=== PATIENT | female | born 1950 | race Caucasian/White ===

== ENCOUNTER 2017-11-17 18:15 | Inpatient (IN) | payer MEDICARE ==
[2017-11-17] VITALS (8 sets, daily range): BP systolic 99–129; BP diastolic 60–75; PULSE 55–142; RESP 18–21; TEMP 96.5–96.9; O2SAT 92–98
[~2017-11-17] VITALS: Ht 170.2 cm; Wt 63.9 kg
[2017-11-17] MEDS ORDERED: HYDR-3801 PO (18:50)
[2017-11-17] MEDS ORDERED: METO25TA3 PO (18:50)
[2017-11-17 19:22] LABS: AUTOMATED NEUTROPHIL # 10.9 TH/MM3 (1.8-7.7); BASOPHIL % 0.1 % (0.0-2.0); EOSINOPHIL % 0.1 % (0.0-4.0); HEMATOCRIT 34.2 % (35.0-46.0); HEMOGLOBIN 11.3 GM/DL (11.6-15.3); LYMPH % 8.2 % (9.0-44.0); LYMPHOCYTE # 1.1 TH/MM3 (1.0-4.8); MEAN CELL VOLUME 101.7 FL (80.0-100.0); MEAN CORPUSCULAR HEMOGLOBIN 33.7 PG (27.0-34.0); MEAN CORPUSCULAR HGB CONC 33.2 % (32.0-36.0); MONO % 13.3 % (0.0-8.0); MONOCYTE # 1.9 TH/MM3 (0-0.9); NEUT % 78.3 % (16.0-70.0); PLATELET COUNT 176 TH/MM3 (150-450); RED BLOOD COUNT 3.36 MIL/MM3 (4.00-5.30); RED CELL DISTRIBUTION WIDTH 13.1 % (11.6-17.2); WHITE BLOOD COUNT 13.9 TH/MM3 (4.0-11.0)
--- NOTE | 2017-11-17 19:24 | PD ---
HPI Chief Complaint: Fall Time Seen by Provider: 18:50 Travel History International Travel<30 days: No Contact w/Intl Traveler<30days: No Traveled to known affect area: No History of Present Illness HPI 87-year-old female history of hypertension, coronary artery disease, presents here with right hip pain after mechanical fall in the kitchen. Patient states she got dizzy when she was in the kitchen and dropped a container of lemonade. She reports when she went to go pick it up she slipped on the floor and fell landing on her right hip. Patient reports striking her head on the floor as well. She denies any loss of consciousness. She states she was unable to stand up. She reports pain in the right hip and posterior buttock area. The patient reports she is not currently taking any blood thinners. When paramedics arrived, they state her blood pressure was in the 80 systolic. They gave her a fluid bolus which increased into the low 100 systolic. PFSH Past Medical History Cardiovascular Problems: Yes ([place] 12/05) High Cholesterol: Yes Hypertension: Yes Immunizations Current: Yes (SHINGLES) Myocardial Infarction: Yes Influenza Vaccination: Yes ?: Not Menopausal: Yes Past Surgical History Abdominal Surgery: Yes (FIBROID TUMOR REMOVED 2011) Tonsillectomy: Yes Social History Alcohol Use: Yes (OCC) Tobacco Use: No Substance Use: No Allergies-Medications (Allergen,Severity, Reaction): Coded Allergies: No Known Allergies (Unverified , 11/17/17) Reported Meds & Prescriptions Reported Meds & Active Scripts Active Reported Hydralazine (Hydralazine HCl) 100 Mg Tab 100 Mg PO TID Take with meals Metoprolol Tartrate 25 Mg Tab 25 Mg PO TID Review of Systems Except as stated in HPI: all other systems reviewed are Neg General / Constitutional: No: Fever, Chills Eyes: No: Diploplia HENT: Positive: Headaches (right posterior head), Other (dry mucous membranes.) , No: Neck Pain Cardiovascular: No: Chest Pain or Discomfort, Palpitations, Tachycardia Respiratory: No: Cough, Shortness of Breath Gastrointestinal: No: Nausea, Vomiting, Abdominal Pain Genitourinary: No: Dysuria, Incontinence Musculoskeletal: Positive: Weakness (prior to falling.), Pain (right hip) Neurologic: Positive: Weakness, Headache (right side where she struck the floor.), No: Change in Mentation, Incontinence, Sensory Disturbance Physical Exam Narrative GENERAL: Pale weak appearing female in no acute rest her distress. SKIN: Focused skin assessment warm/dry. HEAD: Atraumatic. Normocephalic. Objective discomfort to the right lateral posterior occipital area. No bruising or hematoma appreciated. EYES: No scleral icterus. No injection or drainage. ENT: No nasal bleeding or discharge. Mucous membranes dry. NECK: Trachea midline. Supple. CARDIOVASCULAR: Regular rate and rhythm. No murmur appreciated. RESPIRATORY: No accessory muscle use. Clear to auscultation. Breath sounds equal bilaterally. GASTROINTESTINAL: Abdomen soft, non-tender, nondistended. MUSCULOSKELETAL: Patient reports pain to the right hip. He does appear to be shortened and externally rotated. She does have palpable pulses to dorsalis pedis. NEUROLOGICAL: Awake and alert. No obvious cranial nerve deficits. Motor grossly within normal limits. Normal speech. PSYCHIATRIC: Appropriate mood and affect; insight and judgment normal. Data Data Last Documented VS Vital Signs Date Time Temp Pulse Resp B/P (MAP) Pulse Ox O2 Delivery O2 Flow Rate FiO2 11/17/17 19:10 98 Room Air 11/17/17 18:29 96.5 55 21 129/75 (93) Orders Orders Hip, Uni(Ap&Lat) W Ap Pelvis (11/17/17 18:50) Electrocardiogram (11/17/17 18:50) Complete Blood Count With Diff (11/17/17 18:50) Comprehensive Metabolic Panel (11/17/17 18:50) Prothrombin Time / Inr (Pt) (11/17/17 18:50) Act Partial Throm Time (Ptt) (11/17/17 18:50) Chest, Single Ap (11/17/17 18:50) Iv Access Insert/Monitor (11/17/17 18:50) Ecg Monitoring (11/17/17 18:50) Oximetry (11/17/17 18:50) Type And Screen (11/17/17 18:50) MDM Medical Decision Making Medical Screen Exam Complete: Yes Emergency Medical Condition: Yes Differential Diagnosis Right hip fracture versus contusion versus intracranial injury versus dehydration versus metabolic derangement Narrative Course 67-year-old female presents today with right hip pain after mechanical fall in her kitchen. Patient also had a reported hypotensive episode when paramedics arrived. They gave her a fluid bolus. The patient has shortening and external rotation of her right hip. She'll be signed out to Dr. Joey Jacobo, physician replacing me at change of shift. Disposition will be per Dr. Jacobo. I anticipate she will have a hip fracture will need admission. Diagnosis Primary Impression: Right hip pain Additional Impressions: mechanical fall. hypotensive episode Satya Cerda MD Nov 17, 2017 19:24
[2017-11-17 19:35] LABS: PROTHROMBIN TIME - PATIENT 10.3 SEC (9.8-11.6)
[2017-11-17 19:43] LABS: ALBUMIN 2.9 GM/DL (3.4-5.0); AST (GOT) 21 U/L (15-37); BICARBONATE 16.8 MEQ/L (21.0-32.0); BLOOD UREA NITROGEN 37 MG/DL (7-18); CALCIUM 8.1 MG/DL (8.5-10.1); CHLORIDE 104 MEQ/L (98-107); GLOMERULAR FILTRATION RATE 22 ML/MIN (>89); GLUCOSE,RANDOM 108 MG/DL (74-106); SODIUM (NA) 135 MEQ/L (136-145)
[2017-11-17 19:44] LABS: ALT (GPT) 25 U/L (10-53)
[2017-11-17] MEDS ORDERED: ONDANSETRON HCL 4 MG/2 ML VIAL IV PUSH ONE (19:45)
[2017-11-17] MEDS ORDERED: MORPHINE SULFATE 2 MG/ML INJ IV PUSH ONE (19:45)
[2017-11-17] MEDS ORDERED: SODIUM CHLOR 0.9% 1000 ML INJ 1,000 ML IV SCH (19:45)
[2017-11-17 19:46] LABS: ALKALINE PHOSPHATASE 95 U/L (45-117); TOTAL BILIRUBIN ADULT 0.2 MG/DL (0.2-1.0); TOTAL PROTEIN 6.3 GM/DL (6.4-8.2)
--- NOTE | 2017-11-17 19:47 | PD ---
Physical Exam Narrative Patient was seen by ED physician and signed out to me. Patient fell this afternoon. Patient has not in eating or drinking much all day today. Patient initially was hypotensive. Patient was given IV fluid with resulting in good blood pressure now. History hypertension and hyperlipidemia. Patient quit smoking recently. Patient take aspirin 81 mg daily however not today. Data Data Last Documented VS Vital Signs Date Time Temp Pulse Resp B/P (MAP) Pulse Ox O2 Delivery O2 Flow Rate FiO2 11/17/17 19:10 98 Room Air 11/17/17 18:29 96.5 55 21 129/75 (93) Orders Orders Hip, Uni(Ap&Lat) W Ap Pelvis (11/17/17 18:50) Electrocardiogram (11/17/17 18:50) Complete Blood Count With Diff (11/17/17 18:50) Comprehensive Metabolic Panel (11/17/17 18:50) Prothrombin Time / Inr (Pt) (11/17/17 18:50) Act Partial Throm Time (Ptt) (11/17/17 18:50) Chest, Single Ap (11/17/17 18:50) Iv Access Insert/Monitor (11/17/17 18:50) Ecg Monitoring (11/17/17 18:50) Oximetry (11/17/17 18:50) Type And Screen (11/17/17 18:50) Sodium Chlor 0.9% 1000 Ml Inj (Ns 1000 M (11/17/17 19:45) Morphine Inj (Morphine Inj) (11/17/17 19:45) Ondansetron Inj (Zofran Inj) (11/17/17 19:45) Labs Laboratory Tests Test 11/17/17 19:08 White Blood Count 13.9 TH/MM3 Red Blood Count 3.36 MIL/MM3 Hemoglobin 11.3 GM/DL Hematocrit 34.2 % Mean Corpuscular Volume 101.7 FL Mean Corpuscular Hemoglobin 33.7 PG Mean Corpuscular Hemoglobin Concent 33.2 % Red Cell Distribution Width 13.1 % Platelet Count 176 TH/MM3 Mean Platelet Volume 9.0 FL Neutrophils (%) (Auto) 78.3 % Lymphocytes (%) (Auto) 8.2 % Monocytes (%) (Auto) 13.3 % Eosinophils (%) (Auto) 0.1 % Basophils (%) (Auto) 0.1 % Neutrophils # (Auto) 10.9 TH/MM3 Lymphocytes # (Auto) 1.1 TH/MM3 Monocytes # (Auto) 1.9 TH/MM3 Eosinophils # (Auto) 0.0 TH/MM3 Basophils # (Auto) 0.0 TH/MM3 CBC Comment DIFF FINAL Differential Comment Prothrombin Time 10.3 SEC Prothromb Time International Ratio 1.0 RATIO Activated Partial Thromboplast Time 27.8 SEC MDM Supervised Visit with REYNALDO: No Narrative Course Patient with fracture right femur, intertrochanteric. Normal saline solution 1 25 cc an hour. Morphine 2 mg IV. Zofran 4 mg IV. Diagnosis Primary Impression: Right hip pain Additional Impressions: hypotensive episode mechanical fall. Fracture of right femur Qualified Codes: S72.141A - Displaced intertrochanteric fracture of right femur, initial encounter for closed fracture Admitting Information Admitting Physician Requests: Admit Joey Jacobo MD Nov 17, 2017 19:47
--- NOTE | 2017-11-17 19:53 | RADRPT ---
EXAM DATE/TIME: 11/17/2017 19:15 [facility] COMPARISON: No previous studies available for comparison. INDICATIONS : Fall today. Shortness of breath. MEDICAL HISTORY : None. SURGICAL HISTORY : None. ENCOUNTER: Initial ACUITY: 1 day PAIN SCORE: 0/10 LOCATION: Bilateral chest FINDINGS: The lungs are clear without infiltrate, nodule, or mass. There is no appreciable pleural effusion fo r technique. Heart and mediastinum are unremarkable. There are atherosclerotic calcifications of the aorta due to chronic atherosclerotic disease. No definite pneumothorax is seen for technique. CONCLUSION: No acute cardiopulmonary disease. Linden Araujo MD on November 17, 2017 at 19:50 Board Certified Radiologist. This report was verified electronically.
--- NOTE | 2017-11-17 19:54 | RADRPT ---
EXAM DATE/TIME: 11/17/2017 19:12 [facility] COMPARISON: No previous studies available for comparison. INDICATIONS : Fall today. MEDICAL HISTORY : None. SURGICAL HISTORY : None. ENCOUNTER: Initial ACUITY: 1 day PAIN SCORE: 10/10 LOCATION: Right hip. FINDINGS: Intertrochanter fracture is present within both lesser trochanter and the fracture extends down the s haft of the proximal femur into the proximal diaphysis and there is varus angulation. CONCLUSION: Intertrochanteric fracture. Linden Araujo MD on November 17, 2017 at 19:51 Board Certified Radiologist. This report was verified electronically.
--- NOTE | 2017-11-17 19:59 | HHI.HP ---
HPI Service [facility] Primary Care Physician Unknown Admission Diagnosis fracture right femur Diagnoses: (1) Fall Diagnosis: Principal (2) Fracture of right femur Diagnosis: Principal (3) Hypotension Diagnosis: Principal (4) Leukocytosis Diagnosis: Principal (5) Renal insufficiency Diagnosis: Principal (6) Bradycardia Diagnosis: Principal Travel History International Travel<30 Days: No Contact w/Intl Traveler <30 Da: No Traveled to Known Affected Are: No History of Present Illness This is a 67-year-old female w/ a PMH of HTN, Hyperlipidemia and CAD who was brought to the ER for right hip pain following a fall. Pt states she was in the kitchen and had acute onset of dizziness, dropped a container on the floor and when she went to pick it up had slip and fall onto right hip. Pain is sharp , constant, severe 10/10. Worse w/ movement. No LOC or head trauma reported. Upon EMS arrival, pt noted to have BP 80's systolic, s/p IVF w/ improvement. On arrival to ER, BP 129/75, HR 55, O2 sat 96% on RA, Afebrile. WBC 13.9. Creatinine 2.20, no previous labs for comparison. CXR with no acute findings. Hip X-ray with intertrochanteric hip fracture. Dr. Dale consulted by ER physician, plan is for surgical intervention. Review of Systems Except as stated in HPI: all other systems reviewed are Neg ROS: 14 point review of systems otherwise negative. Past Family Social History Past Medical History PMH: HTN, Hyperlipidemia and CAD Past Surgical History PAST SURGICAL HISTORY: Fibroid Tumor Removal, Tonsillectomy Allergies: Coded Allergies: No Known Allergies (Unverified , 11/17/17) Family History PAST FAMILY HISTORY: Reviewed. No h/o DM or CAD Social History PAST SOCIAL HISTORY: Occasional alcohol. History of tobacco, quit. Negative for drugs. Physical Exam Vital Signs Vital Signs Date Time Temp Pulse Resp B/P (MAP) Pulse Ox O2 Delivery O2 Flow Rate FiO2 11/17/17 19:10 98 Room Air 11/17/17 18:29 96.5 55 21 129/75 (93) 96 Physical Exam PE: GENERAL: Middle-aged female in no acute distress. HEENT: PERRLA, EOMI. No scleral icterus or conjunctival pallor. No lid lag or facial droop. CARDIOVASCULAR: Regular rate and rhythm. No obvious murmurs to auscultation. No chest tenderness to palpation. RESPIRATORY: No obvious rhonchi or wheezing. Clear to auscultation. Breath sounds equal bilaterally. GASTROINTESTINAL: Abdomen soft, non-tender, nondistended. BS normal. MUSCULOSKELETAL: Extremities without clubbing, cyanosis, or edema. No obvious deformities. Decreased ROM of RLE due to injury. Pulses intact. NEUROLOGICAL: Awake, alert and oriented x4. No focal neurologic deficits. Moving both upper and lower extremities spontaneously. Laboratory Laboratory Tests Test 11/17/17 19:08 White Blood Count 13.9 Red Blood Count 3.36 Hemoglobin 11.3 Hematocrit 34.2 Mean Corpuscular Volume 101.7 Mean Corpuscular Hemoglobin 33.7 Mean Corpuscular Hemoglobin Concent 33.2 Red Cell Distribution Width 13.1 Platelet Count 176 Mean Platelet Volume 9.0 Neutrophils (%) (Auto) 78.3 Lymphocytes (%) (Auto) 8.2 Monocytes (%) (Auto) 13.3 Eosinophils (%) (Auto) 0.1 Basophils (%) (Auto) 0.1 Neutrophils # (Auto) 10.9 Lymphocytes # (Auto) 1.1 Monocytes # (Auto) 1.9 Eosinophils # (Auto) 0.0 Basophils # (Auto) 0.0 CBC Comment DIFF FINAL Differential Comment Prothrombin Time 10.3 Prothromb Time International Ratio 1.0 Activated Partial Thromboplast Time 27.8 Blood Urea Nitrogen 37 Creatinine 2.20 Random Glucose 108 Total Protein 6.3 Albumin 2.9 Calcium Level 8.1 Alkaline Phosphatase 95 Aspartate Amino Transf (AST/SGOT) 21 Alanine Aminotransferase (ALT/SGPT) 25 Total Bilirubin 0.2 Sodium Level 135 Potassium Level 4.1 Chloride Level 104 Carbon Dioxide Level 16.8 Anion Gap 14 Estimat Glomerular Filtration Rate 22 Result Diagram: 11/17/17190711/17/171907 Caprini VTE Risk Assessment Caprini VTE Risk Assessment: Mod/High Risk (score >= 2) Caprini Risk Assessment Model Point Value = 1 Point Value = 2 Point Value = 3 Point Value = 5 Age 41-60 Minor surgery BMI > 25 kg/m2 Swollen legs Varicose veins or History of unexplained or recurrent spontaneous Oral contraceptives or hormone replacement Sepsis (< 1 month) Serious lung disease, including pneumonia (< 1 month) Abnormal pulmonary function Acute myocardial infarction Congestive heart failure (< 1 month) History of inflammatory bowel disease Medical patient at bed rest Age 61-74 Arthroscopic surgery Major open surgery (> 45 min) Laparoscopic surgery (> 45 min) Malignancy Confined to bed (> 72 hours) Immobilizing plaster cast Central venous access Age >= 75 History of VTE Family history of VTE Factor V Leiden Prothrombin [id number] Lupus anticoagulant Anticardiolipin antibodies Elevated serum homocysteine Heparin-induced thrombocytopenia Other congenital or acquired thrombophilia Stroke (< 1 month) Elective arthroplasty Hip, pelvis, or leg fracture Acute spinal cord injury (< 1 month) Prophylaxis Regimen Total Risk Factor Score Risk Level Prophylaxis Regimen 0-1 Low Early ambulation 2 Moderate Order ONE of the following: *Sequential Compression Device (SCD) *Heparin 5000 units SQ BID 3-4 Higher Order ONE of the following medications: *Heparin 5000 units SQ TID *Enoxaparin/Lovenox 40 mg SQ daily (WT < 150 kg, CrCl > 30 mL/min) *Enoxaparin/Lovenox 30 mg SQ daily (WT < 150 kg, CrCl > 10-29 mL/min) *Enoxaparin/Lovenox 30 mg SQ BID (WT < 150 kg, CrCl > 30 mL/min) AND/OR *Sequential Compression Device (SCD) 5 or more Highest Order ONE of the following medications: *Heparin 5000 units SQ TID (Preferred with Epidurals) *Enoxaparin/Lovenox 40 mg SQ daily (WT < 150 kg, CrCl > 30 mL/min) *Enoxaparin/Lovenox 30 mg SQ daily (WT < 150 kg, CrCl > 10-29 mL/min) *Enoxaparin/Lovenox 30 mg SQ BID (WT < 150 kg, CrCl > 30 mL/min) AND *Sequential Compression Device (SCD) Assessment and Plan Problem List: (1) Fall ICD Code: W19.XXXA - Unspecified fall, initial encounter (2) Fracture of right femur ICD Code: S72.91XA - Unspecified fracture of right femur, initial encounter for closed fracture Status: Acute (3) Hypotension ICD Code: I95.9 - Hypotension, unspecified (4) Bradycardia ICD Code: R00.1 - Bradycardia, unspecified (5) Renal insufficiency ICD Code: N28.9 - Disorder of kidney and ureter, unspecified (6) Leukocytosis ICD Code: D72.829 - Elevated white blood cell count, unspecified Assessment and Plan A/P: 1. Fall: mechanical slip and fall in kitchen, denies LOC or head trauma, however +dizziness, likely secondary to hypotension. 2. Right Hip Fx: secondary to above, Hip X-ray w/ right intertrochanteric hip fracture, images reviewed by me. Dr. Dale consulted, plan is for surgical intervention in am. NPO, IVF, analgesic/antiemetics. 3. Hypotension: BP 80's systolic upon EMS arrival, s/p IVF w/ some improvement. Reports dizziness and decreased PO intake. Monitor BP closely, hold home Hydralazine and Metoprolol, resume once BP stable. 4. Bradycardia: HR 50's, baseline unknown, on Metoprolol. Bradycardia possibly contributing to dizziness/fall. Check Echo. Telemetry, monitor vitals. Cardiology Consult if needed for symptomatic bradycardia 5. Renal Insufficiency: Creatinine 2.20, no previous labs for comparison. IVF , check U/a to eval for possible UTI, repeat labs in am. Consult Nephro if no improvement for further recommendations. 6. DVT Prophylaxis: Anticoagulation post op 7. Social work for d/c planning as needed. 8. Records/labs/imaging reviewed by me, case discussed w/ ER physician at length. Physician Certification 2 Midnight Certification Type: Admission for Inpatient Services Order for Inpatient Services The services are ordered in accordance with Medicare regulations or non- Medicare payer requirements, as applicable. In the case of services not specified as inpatient-only, they are appropriately provided as inpatient services in accordance with the 2-midnight benchmark. Estimated LOS (days): 2 days is the estimated time the patient will need to remain in the hospital, assuming treatment plan goals are met and no additional complications. Post-Hospital Plan: Not yet determined Problem Qualifiers (1) Fracture of right femur: Qualified Codes: S72.141A - Displaced intertrochanteric fracture of right femur , initial encounter for closed fracture Sharon Leavitt MD Nov 17, 2017 19:59
[2017-11-17] MEDS ORDERED: SODIUM CHLORIDE 0.9% FLUSH 10 ML FLUSH IV FLUSH PRN (20:00)
[2017-11-17] MEDS ORDERED: SENNOSIDES 8.6 MG TAB PO PRN (20:00)
[2017-11-17] MEDS ORDERED: BISACODYL 10 MG SUPP RECTAL PRN (20:00)
[2017-11-17] MEDS ORDERED: ACETAMINOPHEN 325 MG TAB PO PRN (20:00)
[2017-11-17] MEDS ORDERED: ONDANSETRON HCL 4 MG/2 ML VIAL IVP PRN (20:00)
[2017-11-17] MEDS ORDERED: LACTULOSE SYRUP 20 GM/30 ML CUP PO PRN (20:00)
[2017-11-17] MEDS ORDERED: MAGNESIUM HYDROXIDE SUSP 30 ML CUP PO PRN (20:00)
[2017-11-17] MEDS: SODIUM CHLOR 0.9% 1000 ML INJ 1,000 ML IV SCH (20:18)
[2017-11-17] MEDS: SODIUM CHLORIDE 0.9% FLUSH 10 ML FLUSH IV FLUSH SCH (21:00)
[2017-11-17] MEDS: ACETAMINOPHEN/HYDROcodone 325 MG/5 MG TAB PO PRN (21:11)
[2017-11-17] MEDS: DOCUSATE SODIUM 50 MG/SENNA 8.6 MG TAB PO SCH (21:11)
[2017-11-17] MEDS ORDERED: SERO300T PO (21:24)
[2017-11-17] MEDS ORDERED: [UNRECOGNIZED DRUG - CODE] PO (21:24)
[2017-11-17] MEDS ORDERED: AMLO5TAB2 PO (21:28)
[2017-11-17] MEDS ORDERED: LORA0.5T PO (21:28)
[2017-11-17] MEDS ORDERED: ATOR20TA15 PO (21:28)
[2017-11-17] MEDS ORDERED: LISI-515 PO (21:31)
[2017-11-17] MEDS ORDERED: GUAI100S5 PO (21:34)
[2017-11-17] MEDS ORDERED: SUBO8MIS SL (21:36)
[2017-11-17] MEDS ORDERED: FOLI400T PO (21:36)
[2017-11-17] MEDS ORDERED: LACTATED RINGER'S 1000 ML IV PRN (22:30)
[2017-11-17] MEDS ORDERED: SODIUM CHLORID 0.9% 500 ML IV PRN (22:30)
[2017-11-17] MEDS ORDERED: CHLORHEXIDINE GLUCONATE 2 % 1 PACK (2 CLOTHS) TOPICAL PRN (22:30)
[2017-11-17] MEDS ORDERED: POVIDONE IODINE 5% (ANTISEPSIS KIT) 4 APPLICATIONS EACH NARE PRN (22:30)
[2017-11-17] MEDS: QUEtiapine FUMARATE 300 MG TAB PO SCH (22:33)
[2017-11-17] MEDS: ATORVASTATIN 20 MG TAB PO SCH (22:33)
--- NOTE | 2017-11-17 22:35 | EKG ---
Date Performed: 11/17/2017 Time Performed: 19:29:40 PTAGE: 67 years EKG: SINUS TACHYCARDIA MARKED LEFT AXIS DEVIATION POSSIBLE RIGHT VENTRICULAR CONDUCTION DELAY SE PTAL MYOCARDIAL INFARCTION ABNORMAL ECG NO PREVIOUS TRACING DOCTOR: Mark Becerra Interpretating Date/Time 11/17/2017 22:34:35
--- NOTE | 2017-11-17 22:44 | EKG ---
Date Performed: 11/17/2017 Time Performed: 22:28:00 PTAGE: 67 years EKG: SINUS TACHYCARDIA MARKED LEFT AXIS DEVIATION ST DEVIATION AND MODERATE T-WAVE ABNORMALITY, CONSIDER LATERAL ISCHEMIA ABNORMAL ECG PREVIOUS TRACING : 11/17/2017 19.29 Compared to prior tracing no significant change DOCTOR: Mark Becerra Interpretating Date/Time 11/17/2017 22:43:48
[2017-11-17] MEDS ORDERED: METOPROLOL TARTRATE 25 MG TAB PO ONE (22:45)
[2017-11-17] MEDS: MORPHINE SULFATE 2 MG/ML INJ IV PUSH PRN (23:11)
[2017-11-18] VITALS (13 sets, daily range): BP systolic 80–148; BP diastolic 51–92; PULSE 110–143; RESP 18; TEMP 96.6–99.8; O2SAT 90–95
[2017-11-18] MEDS: ACETAMINOPHEN/HYDROcodone 325 MG/5 MG TAB PO PRN ×2 (01:35→18:07)
[2017-11-18] MEDS ORDERED: SODIUM CHLOR 0.9% 1000 ML INJ 1,000 ML IV ONE (02:00)
[2017-11-18] MEDS: MORPHINE SULFATE 2 MG/ML INJ IV PUSH PRN ×4 (02:33→19:56)
[2017-11-18 03:18] LABS: BACTERIA, URINE MANY /hpf; BILIRUBIN, URINE NEG (NEG); BLOOD, URINE SMALL (NEG); GLUCOSE,URINE NEG (NEG); KETONE, URINE NEG (NEG); NITRITE,URINE NEG (NEG); PH, URINE 5.5 (5.0-8.5); URINE COLOR YELLOW (YELLW/STRAW); URINE LEUKOCYTE ESTERASE LARGE (NEG)
[2017-11-18] MEDS ORDERED: GENTAMICIN SULFATE 80 MG/2 ML VIAL ONE (07:13)
[2017-11-18] MEDS ORDERED: ACETAMINOPHEN 1000 MG/100 ML 100 ML IV ONE (07:18)
[2017-11-18] MEDS: SODIUM CHLORIDE 0.9% FLUSH 10 ML FLUSH IV FLUSH SCH ×2 (08:25→19:54)
[2017-11-18] MEDS: DOCUSATE SODIUM 50 MG/SENNA 8.6 MG TAB PO SCH ×2 (08:25→19:54)
[2017-11-18] MEDS ORDERED: cefTRIAXone 1,000 MG/NS 100 ML IV ONE ×2 (10:15)
[2017-11-18] MEDS ORDERED: LEVOFLOXACIN 500 MG PREMIX INJ 100 ML IV ONE (10:15)
[2017-11-18 10:23] LABS: HEMATOCRIT 28.9 % (35.0-46.0); HEMOGLOBIN 9.6 GM/DL (11.6-15.3); MEAN CELL VOLUME 100.6 FL (80.0-100.0); MEAN CORPUSCULAR HEMOGLOBIN 33.5 PG (27.0-34.0); MEAN CORPUSCULAR HGB CONC 33.3 % (32.0-36.0); MEAN PLATELET VOLUME 8.9 FL (7.0-11.0); PLATELET COUNT 151 TH/MM3 (150-450); RED BLOOD COUNT 2.88 MIL/MM3 (4.00-5.30); RED CELL DISTRIBUTION WIDTH 12.9 % (11.6-17.2); WHITE BLOOD COUNT 9.7 TH/MM3 (4.0-11.0)
[2017-11-18 10:33] LABS: ALKALINE PHOSPHATASE 81 U/L (45-117); TOTAL BILIRUBIN ADULT 0.2 MG/DL (0.2-1.0); TOTAL PROTEIN 5.5 GM/DL (6.4-8.2)
[2017-11-18 10:36] LABS: ALBUMIN 2.4 GM/DL (3.4-5.0); ALT (GPT) 23 U/L (10-53); AST (GOT) 23 U/L (15-37); BICARBONATE 20.9 MEQ/L (21.0-32.0); CALCIUM 7.6 MG/DL (8.5-10.1); CHLORIDE 106 MEQ/L (98-107); CREATININE 1.45 MG/DL (0.50-1.00); GLOMERULAR FILTRATION RATE 36 ML/MIN (>89); GLUCOSE,RANDOM 92 MG/DL (74-106); SODIUM (NA) 135 MEQ/L (136-145)
[2017-11-18 10:37] LABS: BLOOD UREA NITROGEN 31 MG/DL (7-18)
--- NOTE | 2017-11-18 11:43 | HHI.PR ---
Subjective Remarks Follow up fall, dizziness. Patient was scheduled for surgery this morning, but it is on hold for cardiology evaluation and echocardiogram. She denies chest pain, dyspnea. She does have nausea, but no vomiting. Objective Vitals Vital Signs Date Time Temp Pulse Resp B/P (MAP) Pulse Ox O2 Delivery O2 Flow Rate FiO2 11/18/17 08:00 96.6 113 18 112/67 (82) 90 11/18/17 05:30 80/51 (61) 11/18/17 05:19 110 11/18/17 04:30 96.7 113 18 92/53 (66) 95 11/18/17 02:51 124 11/18/17 02:38 18 11/18/17 02:28 18 11/18/17 02:08 130 104/64 (77) 11/18/17 01:32 131 102/64 (77) 11/17/17 23:47 137 11/17/17 23:12 96.9 136 18 99/69 (79) 93 11/17/17 22:45 136 11/17/17 22:37 18 11/17/17 22:31 135 11/17/17 22:00 140 11/17/17 21:10 96.7 142 19 112/60 (77) 92 11/17/17 19:10 98 Room Air 11/17/17 18:29 96.5 55 21 129/75 (93) 96 I/O 11/17/17 11/17/17 11/17/17 11/18/17 11/18/17 11/18/17 07:00 15:00 23:00 07:00 15:00 23:00 Intake Total 480 ml 1500 ml Output Total 650 ml Balance 480 ml 850 ml Intake Oral 480 ml 0 ml IV Total 1500 ml Output Urine Total 650 ml Bladder Scan Volume Amount 725 ml # Voids 0 # Bowel Movements 0 0 Result Diagram: 11/18/1794811/18/17948 Imaging Last Impressions Hip and Pelvis X-Ray 11/17/171849 Signed Impressions: Service Date/Time: Friday, November 17, 2017 19:12 - CONCLUSION: Intertrochanteric fracture. Linden Araujo MD Chest X-Ray 11/17/171849 Signed Impressions: Service Date/Time: Saturday, November 17, 2017 19:15 - CONCLUSION: No acute cardiopulmonary disease. Linden Araujo MD Objective Remarks General: No acute distress. Heart: Regular rate and rhythm. No murmur. Lungs: Clear to auscultation bilaterally. No wheezes, rales, or rhonchi. Breathing is nonlabored. Abdomen: Soft, nontender, nondistended. Extremities: No lower extremity edema. Psych: Alert and oriented. Procedures None Urinary Catheter: Yes Assessment to: Continue Aguilar insert reason: Surgical/Invasive Proced Vascular Central Line Catheter: No A/P Problem List: (1) Fall ICD Code: W19.XXXA - Unspecified fall, initial encounter (2) Fracture of right femur ICD Code: S72.91XA - Unspecified fracture of right femur, initial encounter for closed fracture Status: Acute (3) Hypotension ICD Code: I95.9 - Hypotension, unspecified (4) Bradycardia ICD Code: R00.1 - Bradycardia, unspecified (5) Renal insufficiency ICD Code: N28.9 - Disorder of kidney and ureter, unspecified (6) Leukocytosis ICD Code: D72.829 - Elevated white blood cell count, unspecified Assessment and Plan 1. Status post mechanical fall at home: Patient had dizziness preceding the event, likely secondary to hypotension. 2. Right hip fracture: Appreciate orthopedic surgery recommendations. Patient will need surgical repair. Surgery is on hold pending cardiology evaluation and echocardiogram. 3. Hypotension: Blood pressure is improving. Continue IV fluids. Patient has had decreased oral intake also reported dizziness prior to her fall. Blood pressure medications on hold. 4. Bradycardia: Patient is chronically on beta rowena. This possibly contributed to her dizziness and fall. Echocardiogram pending. Monitor on telemetry. Cardiology consultation is pending. 5. Renal insufficiency: Creatinine 2.2 upon arrival, improved to 1.45 today. Continue IV fluids. Monitor labs. 6. Coronary artery disease: Currently asymptomatic. Continue statin. Beta rowena on hold. 7. UTI: Urine culture is pending. Continue antibiotics. 8. DVT prophylaxis: SCDs. Anticoagulation postoperatively. Problem Qualifiers (1) Fracture of right femur: Qualified Codes: S72.141A - Displaced intertrochanteric fracture of right femur , initial encounter for closed fracture Alejandro Hernandez MD Nov 18, 2017 11:42
[2017-11-18 12:04] LABS: BANDS 30 % (0-6); BASOPHILS 1 % (0-2); LYMPHOCYTES 12 % (9-44); MONOCYTES 12 % (0-8); NEUTROPHIL # MANUAL DIFF 7.1 TH/MM3 (1.8-7.7); POLYS (SEG NEUTROPHILS) 43 % (16-70)
[2017-11-18] MEDS ORDERED: PILL SPLITTER OTHER PRN (15:30)
[2017-11-18] MEDS: SODIUM CHLOR 0.9% 1000 ML INJ 1,000 ML IV SCH ×2 (16:00→20:02)
--- NOTE | 2017-11-18 16:08 | MB ---
cc: CARLIN MOSS DO DATE OF CONSULTATION: 11/18/2017. REASON FOR CONSULTATION: Preoperative risk assessment. HISTORY OF PRESENT ILLNESS: Roberta Stevens is a pleasant 67-year-old female who presented to the [facility] Emergency Room on November 17, 2017 for right hip pain after a fall. She states that she had noticed she had a fever of 103 and took some aspirin and this took it down and she was sleeping. She had not eaten or drunk anything over the past 24 hours. She went down to the kitchen and grabbed some lemonade and it dropped to the floor and the container was leaking out everywhere. She states that she was dizzy at the time (has a history of vertigo) but she was worried that the container continued to leak and so she grabbed onto the fridge and started leaning over trying to pick it up and at that time lost her warehouse material handler on the fridge and fell landing on her right hip. On seeing her, she is currently tachycardic but otherwise hemodynamically stable. She denies chest pain or shortness of breath. She is in significant sharp pain in her right hip. The patient previously had a stent placed between four and six years ago. She followed with a sheet heater helper in [place] until moving down here within the past few weeks. She states that she had regular cardiovascular checkups and had a pharmacologic nuclear stress test around four months ago which she was told was normal. PAST MEDICAL HISTORY: 1. Hypertension. 2. Hyperlipidemia. 3. Coronary artery disease. PAST SURGICAL HISTORY: 1. Previous stent to an unknown vessel around four to six years ago. 2. Fibroid tumor removal. 3. Tonsillectomy. ALLERGIES: No known drug allergies. MEDICATIONS: 1. Lipitor 20 milligrams every night. 2. Hydralazine 25 milligrams three times a day. 3. Metoprolol tartrate 100 milligrams twice a day. 4. Norvasc 5 milligrams daily. 5. Lisinopril 20 milligrams twice a day. 6. Seroquel 600 milligrams every night. 7. Ativan 0.25 milligrams daily as needed for anxiety. FAMILY HISTORY: Denies premature coronary artery disease or sudden cardiac within the family. SOCIAL HISTORY: The patient occasionally uses alcohol. Previously smoked but quit a number years ago. Denies drugs. REVIEW OF SYSTEMS Fourteen systems were reviewed including osteopathic with pertinent positives and negatives as above; otherwise negative. PHYSICAL EXAMINATION: VITAL SIGNS: Temperature 96.6, heart rate 124, blood pressure 108/73, respirations 18, pulse ox 93% on room air. GENERAL: In general the patient appears well in mild distress due to right hip pain. HEAD, EYES, EARS, NOSE, THROAT: Extraocular muscles intact. Mucous membranes moist. NECK: The neck is supple. No JVD at 45 degrees. No carotid bruits heard bilaterally. Carotid upstroke is brisk in nature. HEART: Heart is tachycardiac. Positive first and second heart sounds with no murmurs, gallops or rubs. LUNGS: Lungs are clear to auscultation bilaterally. No wheezes, rales or rhonchi. ABDOMEN: The abdomen is soft, nontender and nondistended. No organomegaly noted. EXTREMITIES: No cyanosis, clubbing or edema. Right hip noted to have pain with palpation and decreased range of motion. NEUROLOGIC: No focal deficits. SKIN: Warm, dry and intact. OSTEOPATHIC: Osteopathically, no kyphoscoliosis, lordosis or paraspinal tender points. LABORATORY FINDINGS: Hemoglobin 9.6, hematocrit 28.9, platelets 151,000. Potassium 4.0, BUN 31, creatinine 1.45. EKGS: Electrocardiogram (November 17, 2017 at 1929): Sinus tachycardia, possible right ventricular conduction delay, baseline artifact. IMPRESSION: 1. Mechanical fall with the right hip fracture 2. History of vertigo. 3. Poor oral intake over the past 24 hours. 4. Dehydration. 5. Episode of hypotension on arrival to the emergency room with some improvement with fluids. 6. Tachycardia. 7. Acute kidney injury. 8. Preoperative cardiac evaluation. RECOMMENDATIONS: 1. Ms. Stevens appears to have had a mechanical fall due to her vertigo and also most likely due to her poor oral intake over the past 24 hours. She appears to be dehydrated and should continue on IV fluids. 2. She currently denies any chest pain or shortness of breath and blood pressure has responded to IV fluids. 3. She is overall tachycardic, which may be due to pain, dehydration and stopping her beta-rowena. We will place her back on metoprolol tartrate but at a lower dose to not bottom out of pressure. 4. As far as surgery goes, at this time she would be high risk being so tachycardiac, and I would try to resuscitate her with fluids and get her back on a beta-rowena before taking her. 5. We will check a 2-D echo to look at her overall left ventricular function, cardiac structure and possible bowel velocities. 6. She recently had a pharmacologic nuclear stress test around four months ago by her sheet heater helper in [place], which the patient states was negative. 7. If surgery is emergent, then she may proceed but otherwise would attempt to resuscitate her and possibly take her in the next 24 hours. Thank you for allowing me to see Roberta Stevens. If there are any questions, please do not hesitate to call. Carlin Moss DO VGP/JCC /3:04 PM /3:40 PM
[2017-11-18] MEDS: METOPROLOL TARTRATE 25 MG TAB PO SCH ×2 (16:18→22:15)
[2017-11-18] MEDS ORDERED: SODIUM CHLORID 0.9% 500 ML INJ 500 ML IV ONE (17:15)
--- NOTE | 2017-11-18 17:36 | ECHRPT ---
Indication: PRE SURG CLEARANCE CONCLUSIONS Difficult study due to tachycardia The left ventricular systolic function is hyperdynamic with an estimated ejection fraction in the ra nge of 65- 70%. Overall RV appears small and underfilled. Trace mitral valve regurgitation. There is trace tricuspid valve regurgitation. BP: 80 / 51 HR: Rhythm: Sinus MEASUREMENTS (Male / Female) Normal Values Technical Quality:Fair 2D ECHO LV Diastolic Diameter PLAX 3.4 cm 4.2 - 5.9 / 3.9 - 5.3 cm LV Systolic Diameter PLAX 2.1 cm IVS Diastolic Thickness 0.7 cm 0.6 - 1.0 / 0.6 - 0.9 cm LVPW Diastolic Thickness 0.7 cm 0.6 - 1.0 / 0.6 - 0.9 cm LV Relative Wall Thickness 0.4 RV Internal Dim ED PLAX 2.0 cm LVOT Diameter 1.9 cm Aortic Root Diameter 3.0 cm LA Systolic Diameter LX 2.5 cm 3.0 - 4.0 / 2.7 - 3.8 cm M-MODE AV Cusp Separation MM 1.5 cm DOPPLER AV Peak Velocity 131.0 cm/s AV Peak Gradient 6.9 mmHg AV Mean Gradient 4.0 mmHg AV Velocity Time Integral 17.1 cm LVOT Peak Velocity 104.0 cm/s LVOT Peak Gradient 4.3 mmHg LVOT Velocity Time Integral 15.6 cm AV Area Cont Eq vti 2.6 cm AV Area Cont Eq pk 2.3 cm TR Peak Velocity 274.0 cm/s TR Peak Gradient 30.0 mmHg Right Atrial Pressure 10.0 mmHg Pulmonary Artery Systolic Pressu 40.0 mmHg Right Ventricular Systolic Press 40.0 mmHg PV Peak Velocity 109.0 cm/s PV Peak Gradient 4.8 mmHg FINDINGS LEFT VENTRICLE Normal left ventricular size. Wall thickness is normal. The left ventricular systolic function is hyperdynamic with an estimated ejection fraction in the ra nge of 65- 70%. No regional wall motion abnormalities are present. RIGHT VENTRICLE Normal right ventricular size and systolic function. Overall RV appears small and underfilled LEFT ATRIUM The left atrial size is normal. RIGHT ATRIUM The right atrium is not well visualized. ATRIAL SEPTUM The interatrial septum not well visualized. AORTA The aortic root and proximal ascending aorta are not well visualized. MITRAL VALVE Grossly normal mitral valve. No mitral valve stenosis. Trace mitral valve regurgitation. AORTIC VALVE Probable trileaflet aortic valve. No aortic valve stenosis or regurgitation. TRICUSPID VALVE Structurally normal tricuspid valve. No tricuspid valve stenosis. There is trace tricuspid valve regurgitation. PULMONARY VALVE No pulmonary valve regurgitation or stenosis. VESSELS The inferior vena cava is normal in size. PERICARDIUM A prominent epicardial fat pad is present. There is no pericardial effusion. Mark Becerra DO (Electronically Signed) Final Date:18 November 2017 17:35
[2017-11-18] MEDS: ATORVASTATIN 20 MG TAB PO SCH (19:54)
[2017-11-18] MEDS: QUEtiapine FUMARATE 300 MG TAB PO SCH (19:54)
[2017-11-18 20:54] LABS: AUTOMATED NEUTROPHIL # 7.6 TH/MM3 (1.8-7.7); BASOPHIL % 0.3 % (0.0-2.0); EOSINOPHIL % 0.1 % (0.0-4.0); HEMATOCRIT 26.7 % (35.0-46.0); HEMOGLOBIN 9.2 GM/DL (11.6-15.3); LYMPH % 7.5 % (9.0-44.0); LYMPHOCYTE # 0.7 TH/MM3 (1.0-4.8); MEAN CELL VOLUME 99.7 FL (80.0-100.0); MEAN CORPUSCULAR HEMOGLOBIN 34.3 PG (27.0-34.0); MEAN CORPUSCULAR HGB CONC 34.3 % (32.0-36.0); MEAN PLATELET VOLUME 8.6 FL (7.0-11.0); MONO % 12.3 % (0.0-8.0); MONOCYTE # 1.2 TH/MM3 (0-0.9); NEUT % 79.8 % (16.0-70.0); PLATELET COUNT 168 TH/MM3 (150-450); RED BLOOD COUNT 2.67 MIL/MM3 (4.00-5.30); RED CELL DISTRIBUTION WIDTH 12.7 % (11.6-17.2); WHITE BLOOD COUNT 9.5 TH/MM3 (4.0-11.0)
[2017-11-18] MEDS ORDERED: guaiFENesin E.R. 600 MG TAB PO ONE (22:30)
[2017-11-19] VITALS (7 sets, daily range): BP systolic 109–124; BP diastolic 63–78; PULSE 101–132; RESP 16–18; TEMP 97.3–101; O2SAT 92–95
[2017-11-19] MEDS: SODIUM CHLOR 0.9% 1000 ML INJ 1,000 ML IV SCH ×3 (03:28→20:05)
[2017-11-19] MEDS: METOPROLOL TARTRATE 25 MG TAB PO SCH ×2 (06:26→23:16)
[2017-11-19 07:21] LABS: AUTOMATED NEUTROPHIL # 7.4 TH/MM3 (1.8-7.7); BASOPHIL % 0.3 % (0.0-2.0); EOSINOPHIL % 0.3 % (0.0-4.0); HEMATOCRIT 29.1 % (35.0-46.0); HEMOGLOBIN 9.7 GM/DL (11.6-15.3); LYMPH % 11.9 % (9.0-44.0); LYMPHOCYTE # 1.2 TH/MM3 (1.0-4.8); MEAN CELL VOLUME 98.3 FL (80.0-100.0); MEAN CORPUSCULAR HEMOGLOBIN 32.6 PG (27.0-34.0); MEAN CORPUSCULAR HGB CONC 33.2 % (32.0-36.0); MONO % 12.9 % (0.0-8.0); MONOCYTE # 1.3 TH/MM3 (0-0.9); NEUT % 74.6 % (16.0-70.0); PLATELET COUNT 151 TH/MM3 (150-450); RED BLOOD COUNT 2.96 MIL/MM3 (4.00-5.30); RED CELL DISTRIBUTION WIDTH 12.7 % (11.6-17.2); WHITE BLOOD COUNT 9.9 TH/MM3 (4.0-11.0)
[2017-11-19 07:45] LABS: BICARBONATE 21.3 MEQ/L (21.0-32.0); CALCIUM 7.3 MG/DL (8.5-10.1); CREATININE 1.12 MG/DL (0.50-1.00); MAGNESIUM 0.8 MG/DL (1.5-2.5)
[2017-11-19 08:01] LABS: CALCIUM-PROTEIN CORRECTED 8.2 MG/DL (8.5-10.1); TOTAL PROTEIN 5.5 GM/DL (6.4-8.2)
[2017-11-19] MEDS ORDERED: LEVOFLOXACIN 500 MG TAB PO SCH (09:00)
[2017-11-19] MEDS: SODIUM CHLORIDE 0.9% FLUSH 10 ML FLUSH IV FLUSH SCH ×3 (09:00→21:00)
[2017-11-19] MEDS ORDERED: LEVOFLOXACIN 500 MG TAB PO ONE (09:00)
[2017-11-19] MEDS: DOCUSATE SODIUM 50 MG/SENNA 8.6 MG TAB PO SCH ×2 (09:00→23:17)
[2017-11-19] MEDS: MORPHINE SULFATE 2 MG/ML INJ IV PUSH PRN ×2 (09:54→13:29)
[2017-11-19] MEDS: guaiFENesin E.R. 600 MG TAB PO SCH ×2 (09:54→23:15)
--- NOTE | 2017-11-19 11:14 | PD.CARD.PN ---
Subjective Subjective Remarks No events overnight Feels well, no chest pain/SOB Telemetry with heart rates from 105-140, sinus Objective Medications Current Medications Medications (Trade) Dose Ordered Sig/Meena Route Start Time Stop Time Status Last Admin Sodium Chloride 1,000 ml @ 100 mls/hr Q10H IV 11/17/17 20:00 11/19/17 03:28 (NS Flush) 2 ml UNSCH PRN IV FLUSH 11/17/17 20:00 (NS Flush) 2 ml BID IV FLUSH 11/17/17 21:00 11/18/17 08:25 (Zofran Inj) 4 mg Q6H PRN IVP 11/17/17 20:00 (Tylenol) 650 mg Q6H PRN PO 11/17/17 20:00 ([place] 5-325 Mg) 1 tab Q4H PRN PO 11/17/17 20:00 11/18/17 18:07 (Morphine Inj) 2 mg Q3H PRN IV PUSH 11/17/17 20:00 11/19/17 09:54 (Elena-Colace) 1 tab BID PO 11/17/17 21:00 11/18/17 19:54 (Milk Of Magnesia Liq) 30 ml Q12H PRN PO 11/17/17 20:00 (Senokot) 17.2 mg Q12H PRN PO 11/17/17 20:00 (Dulcolax Supp) 10 mg DAILY PRN RECTAL 11/17/17 20:00 (Lactulose Liq) 30 ml DAILY PRN PO 11/17/17 20:00 (SEROquel) 600 mg HS PO 11/17/17 22:00 11/18/17 19:54 (Lipitor) 20 mg HS PO 11/17/17 22:00 11/18/17 19:54 Lactated Ringer's 1,000 ml @ 30 mls/hr Q24H PRN IV 11/17/17 22:30 11/20/17 22:29 Sodium Chloride 500 ml @ 30 mls/hr [id number] PRN IV 11/17/17 22:30 11/20/17 22:29 (Betadine 5% Antisepsis Kit) 1 applic TANK INSULATOR RUBBER PRN EACH NARE 11/17/17 22:30 11/20/17 22:29 (Chlorhexidine 2% Cloth) 3 pack TANK INSULATOR RUBBER PRN TOPICAL 11/17/17 22:30 11/20/17 22:29 (Lopressor) 12.5 mg Q8HR PO 11/18/17 16:00 11/19/17 06:26 (Pill Splitter) 1 ea UNSCH PRN OTHER 11/18/17 15:30 (Mucinex Er) 1,200 mg BID PO 11/19/17 09:00 11/19/17 09:54 (Levaquin) 250 mg DAILY PO 11/20/17 09:00 11/24/17 08:59 Vital Signs / I&O Vital Signs Date Time Temp Pulse Resp B/P (MAP) Pulse Ox O2 Delivery O2 Flow Rate FiO2 11/19/17 08:00 101.0 124 16 118/69 (85) 92 11/19/17 04:50 100.4 132 18 111/63 (79) 94 11/19/17 00:05 100.9 113 18 109/63 (78) 94 11/18/17 22:17 Nasal Cannula 3.00 11/18/17 20:10 135 11/18/17 20:06 18 11/18/17 20:05 99.3 133 18 122/75 (91) 92 11/18/17 19:07 18 11/18/17 17:00 129 11/18/17 16:00 99.8 143 18 148/92 (110) 93 11/18/17 15:00 133 11/18/17 12:00 97.6 124 18 108/73 (85) 93 I/O 11/18/17 11/18/17 11/18/17 11/19/17 11/19/17 11/19/17 07:00 15:00 23:00 07:00 15:00 23:00 Intake Total 1500 ml 200 ml 3560 ml 1000 ml Output Total 650 ml 325 ml 900 ml 550 ml Balance 850 ml -125 ml 2660 ml 450 ml Intake Oral 0 ml 0 ml 360 ml 0 ml IV Total 1500 ml 200 ml 3200 ml 1000 ml Output Urine Total 650 ml 325 ml 900 ml 550 ml Bladder Scan Volume Amount 725 ml # Bowel Movements 0 0 0 0 Physical Exam GENERAL: NAD, AAOx3 SKIN: Warm and dry. HEAD: Atraumatic. Normocephalic. EYES: Pupils equal and round. No scleral icterus. No injection or drainage. ENT: No nasal bleeding or discharge. Mucous membranes pink and moist. NECK: Trachea midline. No JVD. CARDIOVASCULAR: Regular rhythm, tachycardic RESPIRATORY: No accessory muscle use. Clear to auscultation. Breath sounds equal bilaterally. GASTROINTESTINAL: Abdomen soft, non-tender, nondistended. Hepatic and splenic margins not palpable. MUSCULOSKELETAL: Extremities without clubbing, cyanosis, or edema. Right hip pain with motion NEUROLOGICAL: Awake and alert. No obvious cranial nerve deficits. Motor grossly within normal limits. Five out of 5 muscle strength in the arms and legs. Normal speech. PSYCHIATRIC: Appropriate mood and affect; insight and judgment normal. Laboratory Laboratory Tests Test 11/18/17 20:20 11/19/17 07:09 White Blood Count 9.5 TH/MM3 9.9 TH/MM3 Red Blood Count 2.67 MIL/MM3 2.96 MIL/MM3 Hemoglobin 9.2 GM/DL 9.7 GM/DL Hematocrit 26.7 % 29.1 % Mean Corpuscular Volume 99.7 FL 98.3 FL Mean Corpuscular Hemoglobin 34.3 PG 32.6 PG Mean Corpuscular Hemoglobin Concent 34.3 % 33.2 % Red Cell Distribution Width 12.7 % 12.7 % Platelet Count 168 TH/MM3 151 TH/MM3 Mean Platelet Volume 8.6 FL 8.0 FL Neutrophils (%) (Auto) 79.8 % 74.6 % Lymphocytes (%) (Auto) 7.5 % 11.9 % Monocytes (%) (Auto) 12.3 % 12.9 % Eosinophils (%) (Auto) 0.1 % 0.3 % Basophils (%) (Auto) 0.3 % 0.3 % Neutrophils # (Auto) 7.6 TH/MM3 7.4 TH/MM3 Lymphocytes # (Auto) 0.7 TH/MM3 1.2 TH/MM3 Monocytes # (Auto) 1.2 TH/MM3 1.3 TH/MM3 Eosinophils # (Auto) 0.0 TH/MM3 0.0 TH/MM3 Basophils # (Auto) 0.0 TH/MM3 0.0 TH/MM3 CBC Comment DIFF FINAL DIFF FINAL Differential Comment Hematology Comments Blood Urea Nitrogen 20 MG/DL Creatinine 1.12 MG/DL Random Glucose 96 MG/DL Total Protein 5.5 GM/DL Calcium Level 7.3 MG/DL Magnesium Level 0.8 MG/DL Sodium Level 133 MEQ/L Potassium Level 4.1 MEQ/L Chloride Level 104 MEQ/L Carbon Dioxide Level 21.3 MEQ/L Anion Gap 8 MEQ/L Estimat Glomerular Filtration Rate 49 ML/MIN Protein Corrected Calcium 8.2 MG/DL Assessment and Plan Problem List: (1) Sinus tachycardia ICD Codes: R00.0 - Tachycardia, unspecified (2) Fracture of right femur ICD Codes: S72.91XA - Unspecified fracture of right femur, initial encounter for closed fracture Status: Acute (3) Right hip pain ICD Codes: M25.551 - Pain in right hip Status: Acute (4) Renal insufficiency ICD Codes: N28.9 - Disorder of kidney and ureter, unspecified (5) Hypotension ICD Codes: I95.9 - Hypotension, unspecified (6) Fall ICD Codes: W19.XXXA - Unspecified fall, initial encounter Assessment and Plan 1) Mechanical fall with right hip fracture 2) Sinus tachycardia Most likely due to underlying illness, fever, pain and stopping BB Variable, so less likely other SVT 3) Increase BB to 25mg Q8 4) No ACS/CHF/Valvular disease, would attempt to get heart rates closer to 100 for surgery 5) EF 65-70% 6) Stress test 4 months ago which was negative per the patient Problem Qualifiers (1) Fracture of right femur: Qualified Codes: S72.141A - Displaced intertrochanteric fracture of right femur , initial encounter for closed fracture Mark Becerra DO Nov 19, 2017 11:14
[2017-11-19] MEDS ORDERED: METOPROLOL TARTRATE 25 MG TAB PO ONE (11:15)
[2017-11-19] MEDS ORDERED: ceFAZolin INJ 1,000 MG VIAL IV ONE (12:00)
[2017-11-19] MEDS ORDERED: GLYCOPYRROLATE 1 MG/5 ML SYRINGE IV PUSH ONE (12:00)
[2017-11-19] MEDS ORDERED: NEOSTIGMINE 5 MG/5 ML SYRINGE IV PUSH ONE (12:00)
[2017-11-19] MEDS ORDERED: METOPROLOL TARTRATE 5 MG/5 ML VIAL IV PUSH ONE (12:00)
[2017-11-19] MEDS ORDERED: PHENYLEPH/NS 1000 MCG/10 ML SYR IV ONE (12:00)
[2017-11-19] MEDS ORDERED: LACTATED RINGER'S 1000 ML INJ 1,000 ML IV ONE (12:00)
[2017-11-19] MEDS ORDERED: ONDANSETRON HCL 4 MG/2 ML VIAL IV ONE (12:00)
--- NOTE | 2017-11-19 13:44 | HHI.PR ---
Subjective Remarks The pt was resting comfortably in bed. She said that her pain was a 5/10. She was hungry. She was waiting for her surgery. Discussed with nursing at the bedside. Objective Vitals Vital Signs Date Time Temp Pulse Resp B/P (MAP) Pulse Ox O2 Delivery O2 Flow Rate FiO2 11/19/17 08:00 101.0 124 16 118/69 (85) 92 11/19/17 04:50 100.4 132 18 111/63 (79) 94 11/19/17 00:05 100.9 113 18 109/63 (78) 94 11/18/17 22:17 Nasal Cannula 3.00 11/18/17 20:10 135 11/18/17 20:06 18 11/18/17 20:05 99.3 133 18 122/75 (91) 92 11/18/17 19:07 18 11/18/17 17:00 129 11/18/17 16:00 99.8 143 18 148/92 (110) 93 11/18/17 15:00 133 I/O 11/18/17 11/18/17 11/18/17 11/19/17 11/19/17 11/19/17 07:00 15:00 23:00 07:00 15:00 23:00 Intake Total 1500 ml 200 ml 3560 ml 1000 ml Output Total 650 ml 325 ml 900 ml 550 ml Balance 850 ml -125 ml 2660 ml 450 ml Intake Oral 0 ml 0 ml 360 ml 0 ml IV Total 1500 ml 200 ml 3200 ml 1000 ml Output Urine Total 650 ml 325 ml 900 ml 550 ml Bladder Scan Volume Amount 725 ml # Bowel Movements 0 0 0 0 Result Diagram: 11/19/17 0709 11/19/17 0709 Imaging Last Impressions Hip and Pelvis X-Ray 11/17/171849 Signed Impressions: Service Date/Time: Friday, November 17, 2017 19:12 - CONCLUSION: Intertrochanteric fracture. Linden Araujo MD Chest X-Ray 11/17/171849 Signed Impressions: Service Date/Time: Friday, November 17, 2017 19:15 - CONCLUSION: No acute cardiopulmonary disease. Linden Araujo MD Objective Remarks General: No acute distress. HEENT: NC, AT. Heart: Regular rate and rhythm. No murmur. Lungs: Clear to auscultation bilaterally. No wheezes, rales, or rhonchi. Breathing is nonlabored. Abdomen: Soft, nontender, nondistended. Extremities: No lower extremity edema. Neuro: Alert and oriented. Psych: Mood and affect appropriate. Procedures None Medications and IVs Current Medications Medications (Trade) Dose Ordered Sig/Meena Route Start Time Stop Time Status Last Admin Sodium Chloride 1,000 ml @ 100 mls/hr Q10H IV 11/17/17 20:00 11/19/17 13:42 (NS Flush) 2 ml UNSCH PRN IV FLUSH 11/17/17 20:00 (NS Flush) 2 ml BID IV FLUSH 11/17/17 21:00 11/18/17 08:25 (Zofran Inj) 4 mg Q6H PRN IVP 11/17/17 20:00 (Tylenol) 650 mg Q6H PRN PO 11/17/17 20:00 ([place] 5-325 Mg) 1 tab Q4H PRN PO 11/17/17 20:00 11/18/17 18:07 (Morphine Inj) 2 mg Q3H PRN IV PUSH 11/17/17 20:00 11/19/17 13:29 (Elena-Colace) 1 tab BID PO 11/17/17 21:00 11/18/17 19:54 (Milk Of Magnesia Liq) 30 ml Q12H PRN PO 11/17/17 20:00 (Senokot) 17.2 mg Q12H PRN PO 11/17/17 20:00 (Dulcolax Supp) 10 mg DAILY PRN RECTAL 11/17/17 20:00 (Lactulose Liq) 30 ml DAILY PRN PO 11/17/17 20:00 (SEROquel) 600 mg HS PO 11/17/17 22:00 11/18/17 19:54 (Lipitor) 20 mg HS PO 11/17/17 22:00 11/18/17 19:54 Lactated Ringer's 1,000 ml @ 30 mls/hr Q24H PRN IV 11/17/17 22:30 11/20/17 22:29 Sodium Chloride 500 ml @ 30 mls/hr [id number] PRN IV 11/17/17 22:30 11/20/17 22:29 (Betadine 5% Antisepsis Kit) 1 applic RESOURCE CONSERVATION SPECIALIST PRN EACH NARE 11/17/17 22:30 11/20/17 22:29 (Chlorhexidine 2% Cloth) 3 pack RESOURCE CONSERVATION SPECIALIST PRN TOPICAL 11/17/17 22:30 11/20/17 22:29 (Pill Splitter) 1 ea UNSCH PRN OTHER 11/18/17 15:30 (Mucinex Er) 1,200 mg BID PO 11/19/17 09:00 11/19/17 09:54 (Levaquin) 250 mg DAILY PO 11/20/17 09:00 11/24/17 08:59 (Lopressor) 25 mg Q8HR PO 11/19/17 14:00 A/P Problem List: (1) Fall ICD Code: W19.XXXA - Unspecified fall, initial encounter (2) Fracture of right femur ICD Code: S72.91XA - Unspecified fracture of right femur, initial encounter for closed fracture Status: Acute (3) Hypotension ICD Code: I95.9 - Hypotension, unspecified (4) Bradycardia ICD Code: R00.1 - Bradycardia, unspecified (5) Renal insufficiency ICD Code: N28.9 - Disorder of kidney and ureter, unspecified (6) Leukocytosis ICD Code: D72.829 - Elevated white blood cell count, unspecified Assessment and Plan Right hip fracture Status post mechanical fall at home. Patient had dizziness preceding the event. Appreciate orthopedic surgery recommendations. Patient will need surgical repair. - surgery per ortho. - pain control with a bowel regimen. Hypotension Blood pressure is improving. Patient has had decreased oral intake, also reported dizziness prior to her fall. - monitor. - holding home blood pressure meds. Lopressor resumed at lower dose. Reintroduce home meds as tolerated. Bradycardia/ Tachycardia Cardiology consult appreciated. Echo with normal EF. - continue regimen per cardiology. Fever Temp of 101 11/19. Urine culture indicative of infection with GNR. - continue PO Levaquin. - follow urine and blood cultures. - repeat CXR. Renal insufficiency Creatinine 2.2 upon arrival, improved w/ fluids. - Continue IV fluids. Monitor labs. Coronary artery disease Currently asymptomatic. Recent stress test negative. - Continue cardiac regimen. Anemia Unsure of etiology. - anemia work-up in progress. DVT prophylaxis: SCDs. Anticoagulation postoperatively. Problem Qualifiers (1) Fracture of right femur: Qualified Codes: S72.141A - Displaced intertrochanteric fracture of right femur , initial encounter for closed fracture Thony Pope DO Nov 19, 2017 13:44
--- NOTE | 2017-11-19 15:10 | RADRPT ---
EXAM DATE/TIME: 11/19/2017 14:50 [facility] COMPARISON: CHEST SINGLE AP, November 17, 2017, 19:15. INDICATIONS : Fever. MEDICAL HISTORY : None. SURGICAL HISTORY : None. ENCOUNTER: Subsequent ACUITY: 2 days PAIN SCORE: 0/10 LOCATION: Bilateral chest FINDINGS: There is airspace process right lower lung not present previously. Mild left lung base atelectasis an d/or infiltrate is seen. Heart and mediastinum are unremarkable for technique. CONCLUSION: Right lower lobe pneumonia not present previously with slight left lung base atelectasis and/or infil trate. KBrigette Araujo MD on November 19, 2017 at 15:06 Board Certified Radiologist. This report was verified electronically.
[2017-11-19] MEDS ORDERED: KETAMINE HCL 500 MG/5 ML VIAL ONE (17:26)
--- NOTE | 2017-11-19 19:27 | HHI.PR ---
cc: Yessenia Solorio MD Immediate Post Op Note Procedure Date: Nov 19, 2017 Pre Op Diagnosis: (1) Fracture of right femur Post Op Diagnosis: (1) Fracture of right femur Surgeon: Yessenia Solorio Heat Set Operator(s): none Procedure: Intramedullary nail right femur Complications: none Specimen(s) removed: none Estimated blood loss: 100cc Anesthesia: General Drains: None IVF Patient to: PACU Patient Condition: Good Implant/Devices: SEE IMPLANT LOG (if applicable) Date/Time of Procedure: SEE SURGICAL CARE RECORD Yessenia Solorio MD Nov 19, 2017 19:27
[2017-11-19] MEDS ORDERED: SODIUM CHLORIDE 0.9% FLUSH 10 ML FLUSH IV FLUSH PRN (19:30)
[2017-11-19] MEDS ORDERED: Post-op Orders (for Pharmacy) XX ONE (19:30)
[2017-11-19] MEDS ORDERED: diphenhydrAMINE HCL 25 MG CAP PO PRN (19:30)
[2017-11-19] MEDS ORDERED: DO NOT ADM ANY ANTICOAGULANT DRUGS PRN (19:30)
[2017-11-19] MEDS ORDERED: MIDAZOLAM HCL 2 MG/2 ML VIAL ONE (19:38)
[2017-11-19] MEDS ORDERED: *morphine SULFATE 4 MG/ML PERIprocedure ONLY ONE (20:01)
--- NOTE | 2017-11-19 20:33 | RADRPT ---
EXAM DATE/TIME: 11/19/2017 19:04 [facility] COMPARISON: HIP RIGHT (AP&LAT 2/3VWS) W AP PELVIS, November 17, 2017, 19:12. INDICATIONS : Open reduction right femur. MEDICAL HISTORY : None. SURGICAL HISTORY : None. ENCOUNTER: Subsequent ACUITY: 3 days PAIN SCORE: Non-responsive. LOCATION: Right lateral FINDINGS: Intramedullary tammy is present traversing the femur with fixation screws proximally and distally. Ther e is gross anatomical alignment of the fracture fragments. CONCLUSION: Intact postsurgical changes. Linden Araujo MD on November 19, 2017 at 20:30 Board Certified Radiologist. This report was verified electronically.
[2017-11-19] MEDS: ACETAMINOPHEN/HYDROcodone 325 MG/5 MG TAB PO PRN (23:17)
[2017-11-19] MEDS: ATORVASTATIN 20 MG TAB PO SCH (23:17)
[2017-11-19] MEDS: QUEtiapine FUMARATE 300 MG TAB PO SCH (23:18)
[2017-11-20] VITALS (11 sets, daily range): BP systolic 93–136; BP diastolic 59–81; PULSE 93–121; RESP 16–18; TEMP 96–96.8; O2SAT 92–96
[2017-11-20] MEDS: ACETAMINOPHEN/HYDROcodone 325 MG/5 MG TAB PO PRN ×2 (04:09→10:52)
[2017-11-20] MEDS: METOPROLOL TARTRATE 25 MG TAB PO SCH (06:00)
[2017-11-20 06:23] LABS: HEMOGLOBIN 7.1 GM/DL (11.6-15.3); MEAN CELL VOLUME 99.2 FL (80.0-100.0); MEAN CORPUSCULAR HEMOGLOBIN 34.2 PG (27.0-34.0); MEAN CORPUSCULAR HGB CONC 34.5 % (32.0-36.0); MEAN PLATELET VOLUME 8.1 FL (7.0-11.0); PLATELET COUNT 169 TH/MM3 (150-450); RED BLOOD COUNT 2.06 MIL/MM3 (4.00-5.30); RED CELL DISTRIBUTION WIDTH 13.1 % (11.6-17.2); WHITE BLOOD COUNT 10.5 TH/MM3 (4.0-11.0)
[2017-11-20 06:29] LABS: HEMATOCRIT 20.5 % (35.0-46.0)
[2017-11-20 07:11] LABS: % SATURATION IRON PROFILE 5.7 % (20-50); BICARBONATE 21.2 MEQ/L (21.0-32.0); BLOOD UREA NITROGEN 17 MG/DL (7-18); CALCIUM 7.2 MG/DL (8.5-10.1); CHLORIDE 105 MEQ/L (98-107); CREATININE 0.96 MG/DL (0.50-1.00); FERRITIN 379 NG/ML (8-252); FOLATE 19.5 NG/ML (3.1-17.5); GLOMERULAR FILTRATION RATE 58 ML/MIN (>89); GLUCOSE,RANDOM 141 MG/DL (74-106); IRON (FE) 8 MCG/DL (50-170); MAGNESIUM 0.8 MG/DL (1.5-2.5); SODIUM (NA) 135 MEQ/L (136-145); TOTAL IRON BINDING CAPACITY 140 MCG/DL (250-450)
[2017-11-20 07:29] LABS: CALCIUM-PROTEIN CORRECTED 8.5 MG/DL (8.5-10.1); TOTAL PROTEIN 4.8 GM/DL (6.4-8.2)
[2017-11-20] MEDS ORDERED: POTASSIUM CHLORIDE 25 MEQ EFFERVESCENT TAB PO ONE (07:30)
[2017-11-20] MEDS ORDERED: LEVOFLOXACIN 250 MG TAB PO SCH (09:00)
[2017-11-20] MEDS: SODIUM CHLORIDE 0.9% FLUSH 10 ML FLUSH IV FLUSH SCH ×3 (09:00→20:13)
[2017-11-20] MEDS: DOCUSATE SODIUM 50 MG/SENNA 8.6 MG TAB PO SCH ×2 (10:47→20:12)
[2017-11-20] MEDS: guaiFENesin E.R. 600 MG TAB PO SCH ×2 (10:47→20:12)
[2017-11-20] MEDS ORDERED: cefTRIAXone INJ 1,000 MG in SODIUM CHLORIDE 0.9% INJ 100 ML IV SCH (14:00)
--- NOTE | 2017-11-20 14:23 | PD.CARD.PN ---
Subjective Subjective Remarks No events overnight, Right hip surgery last night Feels well, no chest pain/SOB Telemetry with heart rates from 95-130 Objective Medications Current Medications Medications (Trade) Dose Ordered Sig/Meena Route Start Time Stop Time Status Last Admin Sodium Chloride 1,000 ml @ 100 mls/hr Q10H IV 11/17/17 20:00 11/19/17 20:05 (NS Flush) 2 ml UNSCH PRN IV FLUSH 11/17/17 20:00 (NS Flush) 2 ml BID IV FLUSH 11/17/17 21:00 11/20/17 10:48 (Zofran Inj) 4 mg Q6H PRN IVP 11/17/17 20:00 (Tylenol) 650 mg Q6H PRN PO 11/17/17 20:00 ([place] 5-325 Mg) 1 tab Q4H PRN PO 11/17/17 20:00 11/20/17 10:52 (Morphine Inj) 2 mg Q3H PRN IV PUSH 11/17/17 20:00 11/19/17 13:29 ([place]len[place]-Colace) 1 tab BID PO 11/17/17 21:00 11/20/17 10:47 (Milk Of Magnesia Liq) 30 ml Q12H PRN PO 11/17/17 20:00 (Senokot) 17.2 mg Q12H PRN PO 11/17/17 20:00 (Dulcolax Supp) 10 mg DAILY PRN RECTAL 11/17/17 20:00 (Lactulose Liq) 30 ml DAILY PRN PO 11/17/17 20:00 (SEROquel) 600 mg HS PO 11/17/17 22:00 11/19/17 23:18 (Lipitor) 20 mg HS PO 11/17/17 22:00 11/19/17 23:17 (Pill Splitter) 1 ea UNSCH PRN OTHER 11/18/17 15:30 (Mucinex Er) 1,200 mg BID PO 11/19/17 09:00 11/20/17 10:47 (Lopressor) 25 mg Q8HR PO 11/19/17 14:00 11/19/17 23:16 (NS Flush) 2 ml UNSCH PRN IV FLUSH 11/19/17 19:30 (NS Flush) 2 ml BID IV FLUSH 11/19/17 21:00 (Benadryl) 25 mg Q6H PRN PO 11/19/17 19:30 Miscellaneous Information ALL NURSING DEPARTME... UNSCH PRN .XX 11/19/17 19:30 11/20/17 19:29 Cefazolin Sodium 1000 mg/Sodium Chloride 100 ml @ 200 mls/hr Q8H IV 11/20/17 02:00 11/20/17 10:47 Ceftriaxone Sodium 1000 mg/ Sodium Chloride 100 ml @ 200 mls/hr Q24H IV 11/20/17 14:15 UNV (Zithromax) 500 mg DAILY PO 11/21/17 09:00 UNV Vital Signs / I&O Vital Signs Date Time Temp Pulse Resp B/P (MAP) Pulse Ox O2 Delivery O2 Flow Rate FiO2 11/20/17 12:43 96.5 114 16 134/60 94 11/20/17 12:28 96.0 121 18 124/76 93 11/20/17 12:00 96.0 121 18 124/76 (92) 93 11/20/17 09:28 94 11/20/17 09:10 94 Nasal Cannula 2.00 11/20/17 08:26 Nasal Cannula 2.00 11/20/17 08:00 96.0 108 18 93/59 (70) 96 11/20/17 03:50 96.1 112 18 104/61 (75) 94 11/20/17 00:05 96.8 110 17 121/73 (89) 95 11/19/17 20:42 97.3 101 17 124/69 (87) 93 11/19/17 20:15 98.2 97 18 130/63 (85) 93 Nasal Cannula 3 11/19/17 20:00 97 18 137/67 (90) 94 Nasal Cannula 3 11/19/17 19:45 109 22 131/62 (85) 99 Nasal Cannula 3 11/19/17 19:30 97.8 109 22 90/55 (67) 99 Nasal Cannula 4 11/19/17 16:00 101.0 123 16 124/78 (93) 94 11/19/17 15:00 112 I/O 1/1/18 1/1/18 1/1/18 1/2/18 1/2/18 1/2/18 07:00 15:00 23:00 07:00 15:00 23:00 Intake Total 1000 ml 2240 ml 240 ml 2 ml Output Total 550 ml 1130 ml 425 ml Balance 450 ml 1110 ml -185 ml 2 ml Intake Oral 0 ml 240 ml 240 ml IV Total 1000 ml 2000 ml Blood Product IV Normal Saline Flush 2 ml Output Urine Total 550 ml 1080 ml 425 ml Estimated Blood Loss 50 ml # Voids 0 # Bowel Movements 0 1 0 Physical Exam GENERAL: NAD, AAOx3 SKIN: Warm and dry. HEAD: Atraumatic. Normocephalic. EYES: Pupils equal and round. No scleral icterus. No injection or drainage. ENT: No nasal bleeding or discharge. Mucous membranes pink and moist. NECK: Trachea midline. No JVD. CARDIOVASCULAR: Regular rhythm, tachycardic RESPIRATORY: No accessory muscle use. Clear to auscultation. Breath sounds equal bilaterally. GASTROINTESTINAL: Abdomen soft, non-tender, nondistended. Hepatic and splenic margins not palpable. MUSCULOSKELETAL: Extremities without clubbing, cyanosis, or edema. Right hip pain with motion NEUROLOGICAL: Awake and alert. No obvious cranial nerve deficits. Motor grossly within normal limits. Five out of 5 muscle strength in the arms and legs. Normal speech. PSYCHIATRIC: Appropriate mood and affect; insight and judgment normal. Laboratory Laboratory Tests Test 11/20/17 06:06 White Blood Count 10.5 TH/MM3 Red Blood Count 2.06 MIL/MM3 Hemoglobin 7.1 GM/DL Hematocrit 20.5 % Mean Corpuscular Volume 99.2 FL Mean Corpuscular Hemoglobin 34.2 PG Mean Corpuscular Hemoglobin Concent 34.5 % Red Cell Distribution Width 13.1 % Platelet Count 169 TH/MM3 Mean Platelet Volume 8.1 FL Blood Urea Nitrogen 17 MG/DL Creatinine 0.96 MG/DL Random Glucose 141 MG/DL Total Protein 4.8 GM/DL Calcium Level 7.2 MG/DL Magnesium Level 0.8 MG/DL Sodium Level 135 MEQ/L Potassium Level 3.5 MEQ/L Chloride Level 105 MEQ/L Carbon Dioxide Level 21.2 MEQ/L Anion Gap 9 MEQ/L Estimat Glomerular Filtration Rate 58 ML/MIN Protein Corrected Calcium 8.5 MG/DL Iron Level 8 MCG/DL Total Iron Binding Capacity 140 MCG/DL Percent Iron Saturation 5.7 % Ferritin 379 NG/ML Vitamin B12 Level 379 PG/ML Folate 19.5 NG/ML Assessment and Plan Problem List: (1) Sinus tachycardia ICD Codes: R00.0 - Tachycardia, unspecified (2) Fracture of right femur ICD Codes: S72.91XA - Unspecified fracture of right femur, initial encounter for closed fracture Status: Acute (3) Right hip pain ICD Codes: M25.551 - Pain in right hip Status: Acute (4) Renal insufficiency ICD Codes: N28.9 - Disorder of kidney and ureter, unspecified (5) Hypotension ICD Codes: I95.9 - Hypotension, unspecified (6) Fall ICD Codes: W19.XXXA - Unspecified fall, initial encounter Assessment and Plan 1) Mechanical fall with right hip fracture POD#1 for Right hip surgery 2) Sinus tachycardia Most likely due to underlying illness, fever, pain and stopping BB Variable, so less likely other SVT Will watch Hgb, appropriate drop post-surgery If fluid resuscitated and Hgb stable, possible inappropriate sinus tachycardia 3) Increase BB 4) EF 65-70% 5) Stress test 4 months ago which was negative per the patient Problem Qualifiers (1) Fracture of right femur: Qualified Codes: S72.141A - Displaced intertrochanteric fracture of right femur , initial encounter for closed fracture Mark Becerra DO Nov 20, 2017 14:23
[2017-11-20] MEDS ORDERED: RESP: ALBUTEROL 2.5 MG/IPRATROPIUM 0.5 MG NEB (PRN) NEB (14:30)
--- NOTE | 2017-11-20 14:34 | HHI.PR ---
Subjective Remarks The patient was resting comfortably in bed. She said that her pain was around a 4 out of 10 in severity. She has been having a productive cough. No acute concerns at this time. Objective Vitals Vital Signs Date Time Temp Pulse Resp B/P (MAP) Pulse Ox O2 Delivery O2 Flow Rate FiO2 11/20/17 12:43 96.5 114 16 134/60 94 11/20/17 12:28 96.0 121 18 124/76 93 11/20/17 12:00 96.0 121 18 124/76 (92) 93 11/20/17 09:28 94 11/20/17 09:10 94 Nasal Cannula 2.00 11/20/17 08:26 Nasal Cannula 2.00 11/20/17 08:00 96.0 108 18 93/59 (70) 96 11/20/17 03:50 96.1 112 18 104/61 (75) 94 11/20/17 00:05 96.8 110 17 121/73 (89) 95 11/19/17 20:42 97.3 101 17 124/69 (87) 93 11/19/17 20:15 98.2 97 18 130/63 (85) 93 Nasal Cannula 3 11/19/17 20:00 97 18 137/67 (90) 94 Nasal Cannula 3 11/19/17 19:45 109 22 131/62 (85) 99 Nasal Cannula 3 11/19/17 19:30 97.8 109 22 90/55 (67) 99 Nasal Cannula 4 11/19/17 16:00 101.0 123 16 124/78 (93) 94 11/19/17 15:00 112 I/O 11/19/17 11/19/17 11/19/17 11/20/17 11/20/17 11/20/17 07:00 15:00 23:00 07:00 15:00 23:00 Intake Total 1000 ml 2240 ml 240 ml 2 ml Output Total 550 ml 1130 ml 425 ml Balance 450 ml 1110 ml -185 ml 2 ml Intake Oral 0 ml 240 ml 240 ml IV Total 1000 ml 2000 ml Blood Product IV Normal Saline Flush 2 ml Output Urine Total 550 ml 1080 ml 425 ml Estimated Blood Loss 50 ml # Voids 0 # Bowel Movements 0 1 0 Result Diagram: 11/20/17 0606 11/20/17 0606 Imaging Last Impressions Femur X-Ray 11/19/17 0000 Signed Impressions: Service Date/Time: Sunday, November 19, 2017 19:04 - CONCLUSION: Intact postsurgical changes. Linden Araujo MD Chest X-Ray 11/19/17 0000 Signed Impressions: Service Date/Time: Sunday, November 19, 2017 14:50 - CONCLUSION: Right lower lobe pneumonia not present previously with slight left lung base atelectasis and/or infiltrate. Linden Araujo MD Hip and Pelvis X-Ray 11/17/17 1850 Signed Impressions: Service Date/Time: Friday, November 17, 2017 19:12 - CONCLUSION: Intertrochanteric fracture. Linden Araujo MD Objective Remarks General: No acute distress. HEENT: NC, AT. Heart: Regular rate and rhythm. No murmur. Lungs: Crackles at the right base. Abdomen: Soft, nontender, nondistended. Extremities: No lower extremity edema. Tenderness to palpation over right hip. Bandage in place. Neuro: Alert and oriented. Psych: Mood and affect appropriate. Procedures Right femur fracture repair 11/19/17 Medications and IVs Current Medications Medications (Trade) Dose Ordered Sig/Meena Route Start Time Stop Time Status Last Admin Sodium Chloride 1,000 ml @ 100 mls/hr Q10H IV 11/17/17 20:00 11/19/17 20:05 (NS Flush) 2 ml UNSCH PRN IV FLUSH 11/17/17 20:00 (NS Flush) 2 ml BID IV FLUSH 11/17/17 21:00 11/20/17 10:48 (Zofran Inj) 4 mg Q6H PRN IVP 11/17/17 20:00 (Tylenol) 650 mg Q6H PRN PO 11/17/17 20:00 ([place] 5-325 Mg) 1 tab Q4H PRN PO 11/17/17 20:00 11/20/17 10:52 (Morphine Inj) 2 mg Q3H PRN IV PUSH 11/17/17 20:00 11/19/17 13:29 (Elena-Colace) 1 tab BID PO 11/17/17 21:00 11/20/17 10:47 (Milk Of Magnesia Liq) 30 ml Q12H PRN PO 11/17/17 20:00 (Senokot) 17.2 mg Q12H PRN PO 11/17/17 20:00 (Dulcolax Supp) 10 mg DAILY PRN RECTAL 11/17/17 20:00 (Lactulose Liq) 30 ml DAILY PRN PO 11/17/17 20:00 (SEROquel) 600 mg HS PO 11/17/17 22:00 11/19/17 23:18 (Lipitor) 20 mg HS PO 11/17/17 22:00 11/19/17 23:17 (Pill Splitter) 1 ea UNSCH PRN OTHER 11/18/17 15:30 (Mucinex Er) 1,200 mg BID PO 11/19/17 09:00 11/20/17 10:47 (Lopressor) 25 mg Q8HR PO 11/19/17 14:00 11/19/17 23:16 (NS Flush) 2 ml UNSCH PRN IV FLUSH 11/19/17 19:30 (NS Flush) 2 ml BID IV FLUSH 11/19/17 21:00 (Benadryl) 25 mg Q6H PRN PO 11/19/17 19:30 Miscellaneous Information ALL NURSING DEPARTME... UNSCH PRN .XX 11/19/17 19:30 11/20/17 19:29 Cefazolin Sodium 1000 mg/Sodium Chloride 100 ml @ 200 mls/hr Q8H IV 11/20/17 02:00 11/20/17 10:47 Ceftriaxone Sodium 1000 mg/ Sodium Chloride 100 ml @ 200 mls/hr Q24H IV 11/20/17 14:15 UNV (Zithromax) 500 mg DAILY PO 11/21/17 09:00 UNV A/P Problem List: (1) Fall ICD Code: W19.XXXA - Unspecified fall, initial encounter (2) Fracture of right femur ICD Code: S72.91XA - Unspecified fracture of right femur, initial encounter for closed fracture Status: Acute (3) Hypotension ICD Code: I95.9 - Hypotension, unspecified (4) Bradycardia ICD Code: R00.1 - Bradycardia, unspecified (5) Renal insufficiency ICD Code: N28.9 - Disorder of kidney and ureter, unspecified (6) Leukocytosis ICD Code: D72.829 - Elevated white blood cell count, unspecified Assessment and Plan Right hip fracture Status post mechanical fall at home. Patient had dizziness preceding the event. Appreciate orthopedic surgery recommendations. Status post surgical repair on . - Wound care, weightbearing and anticoagulation per ortho. - pain control with a bowel regimen. - Physical therapy. Hypotension Blood pressure is improving. Patient has had decreased oral intake, also reported dizziness prior to her fall. - monitor. - holding home blood pressure meds. Lopressor resumed at lower dose. Reintroduce home meds as tolerated. Bradycardia/ Tachycardia Cardiology consult appreciated. Echo with normal EF. Tachycardia is likely secondary to pain and underlying pneumonia - continue regimen per cardiology. - Pain control. - Antibiotics. - IV fluids. - Check TSH. Fever/ community-acquired pneumonia/ UTI Temp of 101 11/19. Urine culture indicative of infection with klebsiella pneumoniae. Repeat chest x-ray with right lower lobe infiltrate. - Change antibiotics to IV ceftriaxone and azithromycin. - follow sputum and blood cultures. - Incentive spirometry. - Oxygen and nebs as needed. Renal insufficiency Creatinine 2.2 upon arrival, improved w/ fluids. - Continue IV fluids. Monitor labs. Continues to improve. Coronary artery disease Currently asymptomatic. Recent stress test negative. - Continue cardiac regimen. Anemia Hgb dropped following surgery. Anemia work-up noted. - transfuse 1 unit of RBCs and follow CBC. - Hemoccult. DVT prophylaxis: SCDs. Anticoagulation postoperatively. Discharge Planning Await improvement in hemoglobin and heart rate Problem Qualifiers (1) Fracture of right femur: Qualified Codes: S72.141A - Displaced intertrochanteric fracture of right femur , initial encounter for closed fracture Thony Pope DO Nov 20, 2017 14:34
--- NOTE | 2017-11-20 14:59 | PD.ORT.PN ---
Subjective Subjective Remarks Patient resting comfortably. She does complain of pain. She denies nausea or vomiting or shortness of breath. Objective Vitals Vital Signs Date Time Temp Pulse Resp B/P (MAP) Pulse Ox O2 Delivery O2 Flow Rate FiO2 11/20/17 12:43 96.5 114 16 134/60 94 11/20/17 12:28 96.0 121 18 124/76 93 11/20/17 12:00 96.0 121 18 124/76 (92) 93 11/20/17 09:28 94 11/20/17 09:10 94 Nasal Cannula 2.00 11/20/17 08:26 Nasal Cannula 2.00 11/20/17 08:00 96.0 108 18 93/59 (70) 96 11/20/17 03:50 96.1 112 18 104/61 (75) 94 11/20/17 00:05 96.8 110 17 121/73 (89) 95 11/19/17 20:42 97.3 101 17 124/69 (87) 93 11/19/17 20:15 98.2 97 18 130/63 (85) 93 Nasal Cannula 3 11/19/17 20:00 97 18 137/67 (90) 94 Nasal Cannula 3 11/19/17 19:45 109 22 131/62 (85) 99 Nasal Cannula 3 11/19/17 19:30 97.8 109 22 90/55 (67) 99 Nasal Cannula 4 11/19/17 16:00 101.0 123 16 124/78 (93) 94 11/19/17 15:00 112 I/O 11/19/17 11/19/17 11/19/17 11/20/17 11/20/17 11/20/17 07:00 15:00 23:00 07:00 15:00 23:00 Intake Total 1000 ml 2240 ml 240 ml 2 ml Output Total 550 ml 1130 ml 425 ml Balance 450 ml 1110 ml -185 ml 2 ml Intake Oral 0 ml 240 ml 240 ml IV Total 1000 ml 2000 ml Blood Product IV Normal Saline Flush 2 ml Output Urine Total 550 ml 1080 ml 425 ml Estimated Blood Loss 50 ml # Voids 0 # Bowel Movements 0 1 0 Result Diagram: 11/20/17 0606 11/20/17 0606 Objective Remarks Awake alert distress Right lower extremity: Dressings in place without significant drainage. Patient is neurovascular intact distally. Brisk cap refill. Negative Homans Assessment & Plan Assessment and Plan 67-year-old female postop day 1 status post intramedullary nail right anterior troches/basicervical fracture 1. Partial weightbearing 50% right lower extremity 2. Lovenox for DVT prophylaxis 3. Physical therapy for mobilization 4. Dressing changes to start on postop day 2 as needed. 5. UTI currently on levofloxacin 5. Patient is stable for discharge from orthopedic standpoint pending progress with PT. My suspicion is she will likely need rehabilitation placement. Yessenia Solorio MD Nov 20, 2017 14:59
[2017-11-20] MEDS: ENOXAPARIN SODIUM 40 MG/0.4 ML SYRINGE SQ SCH (15:08)
[2017-11-20] MEDS: ACETAMINOPHEN/HYDROcodone 325 MG/10 MG TAB PO PRN ×2 (15:08→20:12)
[2017-11-20] MEDS: AZITHROMYCIN INJ 500 MG in SODIUM CHLOR 0.9% 250 ML INJ 250 ML IV SCH (15:09)
[2017-11-20] MEDS: MAGNESIUM SULFATE 1 GM PREMIX 100 ML IV SCH ×4 (15:10→22:13)
[2017-11-20 16:21] LABS: HEMATOCRIT 26.8 % (35.0-46.0); HEMOGLOBIN 9.1 GM/DL (11.6-15.3); MEAN CORPUSCULAR HEMOGLOBIN 32.9 PG (27.0-34.0); MEAN CORPUSCULAR HGB CONC 33.9 % (32.0-36.0); MEAN PLATELET VOLUME 8.2 FL (7.0-11.0); PLATELET COUNT 182 TH/MM3 (150-450); RED BLOOD COUNT 2.76 MIL/MM3 (4.00-5.30); RED CELL DISTRIBUTION WIDTH 14.9 % (11.6-17.2); WHITE BLOOD COUNT 9.9 TH/MM3 (4.0-11.0)
[2017-11-20] MEDS: MORPHINE SULFATE 2 MG/ML INJ IV PUSH PRN ×2 (16:34→22:14)
[2017-11-20] MEDS: cefTRIAXone INJ 1,000 MG in SODIUM CHLORIDE 0.9% INJ 100 ML IV SCH (18:22)
[2017-11-20] MEDS: QUEtiapine FUMARATE 300 MG TAB PO SCH (20:12)
[2017-11-20] MEDS: METOPROLOL TARTRATE 50 MG TAB PO SCH (20:13)
[2017-11-20] MEDS: ATORVASTATIN 20 MG TAB PO SCH (20:13)
[2017-11-20] MEDS: guaiFENesin/DEXTROMETHORPHAN 200 MG/20 MG/10 ML CUP PO PRN (22:13)
[2017-11-20] MEDS ORDERED: MAGNESIUM SULFATE 1 GM PREMIX 100 ML IV ONE (22:15)
[2017-11-21] VITALS (11 sets, daily range): BP systolic 125–148; BP diastolic 73–97; PULSE 96–125; RESP 17–18; TEMP 96.3–98; O2SAT 91–96
[2017-11-21] MEDS: ACETAMINOPHEN/HYDROcodone 325 MG/10 MG TAB PO PRN ×6 (00:09→23:00)
[2017-11-21] MEDS: SODIUM CHLOR 0.9% 1000 ML INJ 1,000 ML IV SCH (04:00)
[2017-11-21] MEDS: guaiFENesin/DEXTROMETHORPHAN 200 MG/20 MG/10 ML CUP PO PRN (04:44)
--- NOTE | 2017-11-21 06:48 | PD.ORT.PN ---
Subjective Subjective Remarks Patient resting comfortably. Denies chest pain or shortness of breath. Objective Vitals Vital Signs Date Time Temp Pulse Resp B/P (MAP) Pulse Ox O2 Delivery O2 Flow Rate FiO2 11/21/17 04:02 96.3 102 17 130/73 (92) 96 11/21/17 00:03 96.7 96 17 125/74 (91) 95 11/20/17 21:24 94 Nasal Cannula 2.00 11/20/17 20:05 96.0 100 17 136/81 (99) 95 11/20/17 16:00 96.6 93 16 121/71 (88) 92 11/20/17 12:43 96.5 114 16 134/60 94 11/20/17 12:28 96.0 121 18 124/76 93 11/20/17 12:00 96.0 121 18 124/76 (92) 93 11/20/17 09:28 94 11/20/17 09:10 94 Nasal Cannula 2.00 11/20/17 08:26 Nasal Cannula 2.00 11/20/17 08:00 96.0 108 18 93/59 (70) 96 I/O 11/20/17 11/20/17 11/20/17 11/21/17 11/21/17 11/21/17 07:00 15:00 23:00 07:00 15:00 23:00 Intake Total 240 ml 1002 ml 480 ml 480 ml Output Total 425 ml 450 ml 500 ml 1200 ml Balance -185 ml 552 ml -20 ml -720 ml Intake Oral 240 ml 600 ml 480 ml 480 ml Packed Cells 400 ml Blood Product IV Normal Saline Flush 2 ml Output Urine Total 425 ml 450 ml 500 ml 1200 ml # Bowel Movements 0 0 0 Result Diagram: 11/20/17 1551 11/20/17 0606 Objective Remarks Awake alert distress Right lower extremity: Dressings in place without significant drainage. Patient is neurovascular intact distally. Brisk cap refill. Negative Homans Assessment & Plan Assessment and Plan 67-year-old female postop day 2 status post intramedullary nail right anterior troches/basicervical fracture 1. Partial weightbearing 50% right lower extremity 2. Lovenox for DVT prophylaxis. Xarelto upon discharge 3. Physical therapy for mobilization 4. Dressing changes to start on postop day 2 as needed. 5. UTI currently on levofloxacin 5. Patient is stable for discharge from orthopedic standpoint pending progress with PT. My suspicion is she will likely need rehabilitation placement. Yessenia Solorio MD Nov 21, 2017 06:48
[2017-11-21] MEDS ORDERED: XARE10TA PO (06:49)
[2017-11-21] MEDS ORDERED: HYDR-3516 PO (06:49)
[2017-11-21] MEDS ORDERED: AZITHROMYCIN 250 MG TAB PO SCH (09:00)
[2017-11-21] MEDS: METOPROLOL TARTRATE 50 MG TAB PO SCH ×2 (10:16→20:24)
[2017-11-21] MEDS: DOCUSATE SODIUM 50 MG/SENNA 8.6 MG TAB PO SCH ×2 (10:16→20:24)
[2017-11-21] MEDS: SODIUM CHLORIDE 0.9% FLUSH 10 ML FLUSH IV FLUSH SCH ×2 (10:20→20:26)
[2017-11-21 12:11] LABS: BICARBONATE 21.5 MEQ/L (21.0-32.0); CALCIUM 7.7 MG/DL (8.5-10.1); CREATININE 1.14 MG/DL (0.50-1.00); MAGNESIUM 1.7 MG/DL (1.5-2.5)
[2017-11-21 12:13] LABS: HEMATOCRIT 29.9 % (35.0-46.0); HEMOGLOBIN 10.2 GM/DL (11.6-15.3); MEAN CELL VOLUME 96.7 FL (80.0-100.0); MEAN CORPUSCULAR HGB CONC 34.1 % (32.0-36.0); MEAN PLATELET VOLUME 7.7 FL (7.0-11.0); PLATELET COUNT 243 TH/MM3 (150-450); RED BLOOD COUNT 3.09 MIL/MM3 (4.00-5.30); RED CELL DISTRIBUTION WIDTH 15.3 % (11.6-17.2); WHITE BLOOD COUNT 8.3 TH/MM3 (4.0-11.0)
--- NOTE | 2017-11-21 13:03 | HHI.PR ---
Subjective Remarks The patient was sitting in a chair. She had just worked with physical therapy. She said the cough medication was working. She said she had increased pain after moving from the bed to the chair. Discussed with nursing. Objective Vitals Vital Signs Date Time Temp Pulse Resp B/P (MAP) Pulse Ox O2 Delivery O2 Flow Rate FiO2 11/21/17 11:46 18 11/21/17 08:07 102 11/21/17 08:00 96.6 104 18 141/80 (100) 91 11/21/17 04:02 96.3 102 17 130/73 (92) 96 11/21/17 00:03 96.7 96 17 125/74 (91) 95 11/20/17 21:24 94 Nasal Cannula 2.00 11/20/17 20:05 96.0 100 17 136/81 (99) 95 11/20/17 16:00 96.6 93 16 121/71 (88) 92 I/O 11/20/17 11/20/17 11/20/17 11/21/17 11/21/17 11/21/17 07:00 15:00 23:00 07:00 15:00 23:00 Intake Total 240 ml 1002 ml 480 ml 480 ml Output Total 425 ml 450 ml 500 ml 1200 ml Balance -185 ml 552 ml -20 ml -720 ml Intake Oral 240 ml 600 ml 480 ml 480 ml Packed Cells 400 ml Blood Product IV Normal Saline Flush 2 ml Output Urine Total 425 ml 450 ml 500 ml 1200 ml # Bowel Movements 0 0 0 Result Diagram: 11/21/17 1136 11/21/17 1136 Imaging Last Impressions Femur X-Ray 11/19/17 0000 Signed Impressions: Service Date/Time: Sunday, November 19, 2017 19:04 - CONCLUSION: Intact postsurgical changes. Linden Araujo MD Chest X-Ray 11/19/17 0000 Signed Impressions: Service Date/Time: Sunday, November 19, 2017 14:50 - CONCLUSION: Right lower lobe pneumonia not present previously with slight left lung base atelectasis and/or infiltrate. Linden Araujo MD Hip and Pelvis X-Ray 11/17/17 1850 Signed Impressions: Service Date/Time: Friday, November 17, 2017 19:12 - CONCLUSION: Intertrochanteric fracture. Linden Araujo MD Objective Remarks General: No acute distress. HEENT: NC, AT. Heart: Tachycardic. No murmur. Lungs: Decreased breath sounds at the bases. Abdomen: Soft, nontender, nondistended. Extremities: No lower extremity edema. Tenderness to palpation over right hip. Bandage in place. Neuro: Alert and oriented. Psych: Mood and affect appropriate. Procedures Right femur fracture repair 11/19/17 Medications and IVs Current Medications Medications (Trade) Dose Ordered Sig/Meena Route Start Time Stop Time Status Last Admin Sodium Chloride 1,000 ml @ 100 mls/hr Q10H IV 11/17/17 20:00 11/19/17 20:05 (NS Flush) 2 ml UNSCH PRN IV FLUSH 11/17/17 20:00 (NS Flush) 2 ml BID IV FLUSH 11/17/17 21:00 11/21/17 10:20 (Zofran Inj) 4 mg Q6H PRN IVP 11/17/17 20:00 (Tylenol) 650 mg Q6H PRN PO 11/17/17 20:00 ([place] 5-325 Mg) 1 tab Q4H PRN PO 11/17/17 20:00 11/20/17 10:52 (Elena-Colace) 1 tab BID PO 11/17/17 21:00 11/21/17 10:16 (Milk Of Magnesia Liq) 30 ml Q12H PRN PO 11/17/17 20:00 (Senokot) 17.2 mg Q12H PRN PO 11/17/17 20:00 (Dulcolax Supp) 10 mg DAILY PRN RECTAL 11/17/17 20:00 (Lactulose Liq) 30 ml DAILY PRN PO 11/17/17 20:00 11/21/17 10:16 (SEROquel) 600 mg HS PO 11/17/17 22:00 11/20/17 20:12 (Lipitor) 20 mg HS PO 11/17/17 22:00 11/20/17 20:13 (Pill Splitter) 1 ea UNSCH PRN OTHER 11/18/17 15:30 (Benadryl) 25 mg Q6H PRN PO 11/19/17 19:30 (Morphine Inj) 2 mg Q4H PRN IV PUSH 11/20/17 14:30 11/20/17 22:14 ([place] 10-325 Mg) 1 tab Q4H PRN PO 11/20/17 14:30 11/21/17 10:46 (Lopressor) 50 mg Q12HR PO 11/20/17 21:00 11/21/17 10:16 (Duoneb Neb) 1 ampule Q2HR NEB PRN NEB 11/20/17 14:30 Azithromycin 500 mg/Sodium Chloride 250 ml @ 250 mls/hr Q24H IV 11/20/17 15:00 11/20/17 15:09 Ceftriaxone Sodium 1000 mg/ Sodium Chloride 100 ml @ 200 mls/hr Q24H IV 11/20/17 19:00 11/20/17 18:22 (Lovenox Inj) 40 mg Q24H SQ 11/20/17 15:00 11/20/17 15:08 (Robitussin Dm 200-20 Mg/10 ml Liq) 10 ml Q4H PRN PO 11/20/17 21:30 11/21/17 04:44 A/P Problem List: (1) Fall ICD Code: W19.XXXA - Unspecified fall, initial encounter (2) Fracture of right femur ICD Code: S72.91XA - Unspecified fracture of right femur, initial encounter for closed fracture Status: Acute (3) Hypotension ICD Code: I95.9 - Hypotension, unspecified (4) Bradycardia ICD Code: R00.1 - Bradycardia, unspecified (5) Renal insufficiency ICD Code: N28.9 - Disorder of kidney and ureter, unspecified (6) Leukocytosis ICD Code: D72.829 - Elevated white blood cell count, unspecified Assessment and Plan Right hip fracture Status post mechanical fall at home. Patient had dizziness preceding the event. Appreciate orthopedic surgery recommendations. Status post surgical repair on . - Wound care, weightbearing and anticoagulation per ortho. - pain control with a bowel regimen. - Physical therapy. Hypotension Well controlled at this time. - monitor. - Lopressor resumed at lower dose. Reintroduce home meds as tolerated. Tachycardia Cardiology consult appreciated. Echo with normal EF. Tachycardia is likely secondary to pain and underlying pneumonia and UTI. HR still up to 130s. TSH low but T3 and free T4 also low. - continue regimen per cardiology. - Pain control. - Antibiotics. - IV fluids. Fever/ community-acquired pneumonia/ UTI Temp of 101 11/19. Urine culture indicative of infection with klebsiella pneumoniae. Repeat chest x-ray with right lower lobe infiltrate. - Change antibiotics to IV ceftriaxone and azithromycin. - follow sputum and blood cultures. - Incentive spirometry. - Oxygen and nebs as needed. Renal insufficiency Creatinine 2.2 upon arrival, improved w/ fluids. - Continue IV fluids. Monitor labs. - resume lisinopril soon. Coronary artery disease Currently asymptomatic. Recent stress test negative. - Continue cardiac regimen. Anemia Hgb dropped following surgery. Anemia work-up noted. Transfused 1 unit of RBCs with improvement. - Hemoccult. - follow CBC. DVT prophylaxis: Lovenox Discharge Planning Await improvement in hemoglobin and heart rate Problem Qualifiers (1) Fracture of right femur: Qualified Codes: S72.141A - Displaced intertrochanteric fracture of right femur , initial encounter for closed fracture Thony Pope DO Nov 21, 2017 13:03
--- NOTE | 2017-11-21 15:06 | PD.CARD.PN ---
Subjective Subjective Remarks No events overnight, up to the wheelchair Feels well, no chest pain/SOB Telemetry with heart rates from 90-115 Objective Medications Current Medications Medications (Trade) Dose Ordered Sig/Meena Route Start Time Stop Time Status Last Admin (NS Flush) 2 ml UNSCH PRN IV FLUSH 11/17/17 20:00 (NS Flush) 2 ml BID IV FLUSH 11/17/17 21:00 11/21/17 10:20 (Zofran Inj) 4 mg Q6H PRN IVP 11/17/17 20:00 (Tylenol) 650 mg Q6H PRN PO 11/17/17 20:00 ([place] 5-325 Mg) 1 tab Q4H PRN PO 11/17/17 20:00 11/20/17 10:52 ([place]len[place]-Colace) 1 tab BID PO 11/17/17 21:00 11/21/17 10:16 (Milk Of Magnesia Liq) 30 ml Q12H PRN PO 11/17/17 20:00 (Senokot) 17.2 mg Q12H PRN PO 11/17/17 20:00 (Dulcolax Supp) 10 mg DAILY PRN RECTAL 11/17/17 20:00 (Lactulose Liq) 30 ml DAILY PRN PO 11/17/17 20:00 11/21/17 10:16 (SEROquel) 600 mg HS PO 11/17/17 22:00 11/20/17 20:12 (Lipitor) 20 mg HS PO 11/17/17 22:00 11/20/17 20:13 (Pill Splitter) 1 ea UNSCH PRN OTHER 11/18/17 15:30 (Benadryl) 25 mg Q6H PRN PO 11/19/17 19:30 (Morphine Inj) 2 mg Q4H PRN IV PUSH 11/20/17 14:30 11/20/17 22:14 ([place] 10-325 Mg) 1 tab Q4H PRN PO 11/20/17 14:30 11/21/17 10:46 (Lopressor) 50 mg Q12HR PO 11/20/17 21:00 11/21/17 10:16 (Duoneb Neb) 1 ampule Q2HR NEB PRN NEB 11/20/17 14:30 Azithromycin 500 mg/Sodium Chloride 250 ml @ 250 mls/hr Q24H IV 11/20/17 15:00 11/20/17 15:09 Ceftriaxone Sodium 1000 mg/ Sodium Chloride 100 ml @ 200 mls/hr Q24H IV 11/20/17 19:00 11/20/17 18:22 (Lovenox Inj) 40 mg Q24H SQ 11/20/17 15:00 11/20/17 15:08 (Robitussin Dm 200-20 Mg/10 ml Liq) 10 ml Q4H PRN PO 11/20/17 21:30 11/21/17 04:44 Vital Signs / I&O Vital Signs Date Time Temp Pulse Resp B/P (MAP) Pulse Ox O2 Delivery O2 Flow Rate FiO2 11/21/17 11:46 18 11/21/17 08:07 102 11/21/17 08:00 96.6 104 18 141/80 (100) 91 11/21/17 04:02 96.3 102 17 130/73 (92) 96 11/21/17 00:03 96.7 96 17 125/74 (91) 95 11/20/17 21:24 94 Nasal Cannula 2.00 11/20/17 20:05 96.0 100 17 136/81 (99) 95 11/20/17 16:00 96.6 93 16 121/71 (88) 92 I/O 11/20/17 11/20/17 11/20/17 11/21/17 11/21/17 11/21/17 06:59 14:59 22:59 06:59 14:59 22:59 Intake Total 240 ml 1002 ml 480 ml 480 ml Output Total 425 ml 450 ml 500 ml 1200 ml Balance -185 ml 552 ml -20 ml -720 ml Intake Oral 240 ml 600 ml 480 ml 480 ml Packed Cells 400 ml Blood Product IV Normal Saline Flush 2 ml Output Urine Total 425 ml 450 ml 500 ml 1200 ml # Bowel Movements 0 0 0 Physical Exam GENERAL: NAD, AAOx3 SKIN: Warm and dry. HEAD: Atraumatic. Normocephalic. EYES: Pupils equal and round. No scleral icterus. No injection or drainage. ENT: No nasal bleeding or discharge. Mucous membranes pink and moist. NECK: Trachea midline. No JVD. CARDIOVASCULAR: Regular rhythm, tachycardic RESPIRATORY: No accessory muscle use. Clear to auscultation. Breath sounds equal bilaterally. GASTROINTESTINAL: Abdomen soft, non-tender, nondistended. Hepatic and splenic margins not palpable. MUSCULOSKELETAL: Extremities without clubbing, cyanosis, or edema. Right hip pain with motion NEUROLOGICAL: Awake and alert. No obvious cranial nerve deficits. Motor grossly within normal limits. Five out of 5 muscle strength in the arms and legs. Normal speech. PSYCHIATRIC: Appropriate mood and affect; insight and judgment normal. Laboratory Laboratory Tests Test 11/20/17 15:51 11/21/17 11:36 White Blood Count 9.9 TH/MM3 8.3 TH/MM3 Red Blood Count 2.76 MIL/MM3 3.09 MIL/MM3 Hemoglobin 9.1 GM/DL 10.2 GM/DL Hematocrit 26.8 % 29.9 % Mean Corpuscular Volume 97.0 FL 96.7 FL Mean Corpuscular Hemoglobin 32.9 PG 33.0 PG Mean Corpuscular Hemoglobin Concent 33.9 % 34.1 % Red Cell Distribution Width 14.9 % 15.3 % Platelet Count 182 TH/MM3 243 TH/MM3 Mean Platelet Volume 8.2 FL 7.7 FL Thyroid Stimulating Hormone 3rd Gen 0.259 uIU/ML Blood Urea Nitrogen 14 MG/DL Creatinine 1.14 MG/DL Random Glucose 95 MG/DL Calcium Level 7.7 MG/DL Magnesium Level 1.7 MG/DL Sodium Level 136 MEQ/L Potassium Level 3.7 MEQ/L Chloride Level 107 MEQ/L Carbon Dioxide Level 21.5 MEQ/L Anion Gap 8 MEQ/L Estimat Glomerular Filtration Rate 48 ML/MIN Free Thyroxine 0.90 NG/DL Total Triiodothyronine 33 NG/DL Assessment and Plan Problem List: (1) Sinus tachycardia ICD Codes: R00.0 - Tachycardia, unspecified (2) Fracture of right femur ICD Codes: S72.91XA - Unspecified fracture of right femur, initial encounter for closed fracture Status: Acute (3) Right hip pain ICD Codes: M25.551 - Pain in right hip Status: Acute (4) Renal insufficiency ICD Codes: N28.9 - Disorder of kidney and ureter, unspecified (5) Hypotension ICD Codes: I95.9 - Hypotension, unspecified (6) Fall ICD Codes: W19.XXXA - Unspecified fall, initial encounter Assessment and Plan 1) Mechanical fall with right hip fracture POD #2 for Right hip surgery 2) Sinus tachycardia Most likely due to underlying illness, fever, pain and stopping BB Variable, so less likely other SVT If fluid resuscitated and Hgb stable, possible inappropriate sinus tachycardia 3) Increase BB to 75mg BID 4) EF 65-70% 5) Stress test 4 months ago which was negative per the patient Problem Qualifiers (1) Fracture of right femur: Qualified Codes: S72.141A - Displaced intertrochanteric fracture of right femur , initial encounter for closed fracture Mark Becerra DO Nov 21, 2017 15:06
[2017-11-21] MEDS ORDERED: PILL SPLITTER OTHER PRN (15:15)
[2017-11-21] MEDS: ENOXAPARIN SODIUM 40 MG/0.4 ML SYRINGE SQ SCH (16:15)
[2017-11-21] MEDS: AZITHROMYCIN INJ 500 MG in SODIUM CHLOR 0.9% 250 ML INJ 250 ML IV SCH (16:15)
[2017-11-21] MEDS: cefTRIAXone INJ 1,000 MG in SODIUM CHLORIDE 0.9% INJ 100 ML IV SCH (19:00)
[2017-11-21] MEDS: ATORVASTATIN 20 MG TAB PO SCH (20:23)
[2017-11-21] MEDS: QUEtiapine FUMARATE 300 MG TAB PO SCH (20:25)
[2017-11-22 03:42] VITALS: BP 139/83; PULSE 100; RESP 18; TEMP 97; O2SAT 94
[2017-11-22 04:00] VITALS: PULSE 100
[2017-11-22 04:53] LABS: HEMATOCRIT 28.5 % (35.0-46.0); HEMOGLOBIN 9.7 GM/DL (11.6-15.3); MEAN CELL VOLUME 95.8 FL (80.0-100.0); MEAN CORPUSCULAR HEMOGLOBIN 32.4 PG (27.0-34.0); MEAN CORPUSCULAR HGB CONC 33.8 % (32.0-36.0); MEAN PLATELET VOLUME 7.6 FL (7.0-11.0); PLATELET COUNT 260 TH/MM3 (150-450); RED BLOOD COUNT 2.98 MIL/MM3 (4.00-5.30); RED CELL DISTRIBUTION WIDTH 15.1 % (11.6-17.2); WHITE BLOOD COUNT 8.1 TH/MM3 (4.0-11.0)
[2017-11-22 05:11] LABS: BICARBONATE 21.4 MEQ/L (21.0-32.0); CALCIUM 7.5 MG/DL (8.5-10.1); CREATININE 0.95 MG/DL (0.50-1.00); MAGNESIUM 1.2 MG/DL (1.5-2.5)
[2017-11-22 07:52] VITALS: PULSE 111
[2017-11-22 08:00] VITALS: BP 142/74; PULSE 113; RESP 18; TEMP 96.5; O2SAT 95
[2017-11-22] MEDS ORDERED: POTASSIUM CHLORIDE 20 MEQ CONTROLLED RELEASE TAB PO ONE ×2 (09:30→14:45)
[2017-11-22] MEDS: DOCUSATE SODIUM 50 MG/SENNA 8.6 MG TAB PO SCH (10:29)
[2017-11-22] MEDS: MAGNESIUM SULFATE 1 GM PREMIX 100 ML IV SCH ×3 (10:29→13:11)
[2017-11-22] MEDS: METOPROLOL TARTRATE 50 MG TAB PO SCH (10:30)
[2017-11-22] MEDS: ACETAMINOPHEN/HYDROcodone 325 MG/10 MG TAB PO PRN ×2 (10:30→14:00)
[2017-11-22] MEDS: SODIUM CHLORIDE 0.9% FLUSH 10 ML FLUSH IV FLUSH SCH (10:31)
--- NOTE | 2017-11-22 10:31 | RADRPT ---
EXAM DATE/TIME: 11/22/2017 09:34 [facility] COMPARISON: CHEST SINGLE AP, November 19, 2017, 14:50. INDICATIONS : Evaluate for pneumoina. MEDICAL HISTORY : None. SURGICAL HISTORY : None. ENCOUNTER: Initial ACUITY: 4 - 6 days PAIN SCORE: 0/10 LOCATION: Bilateral chest FINDINGS: The cardiac silhouette is enlarged in transverse diameter. There is left lower lobe atelectasis versu s pneumonia. There is clearing right basilar opacity. Bilateral pleural effusions are identified. CONCLUSION: 1. Left lower lobe atelectasis versus pneumonia. 2. Clearing right basilar atelectasis Pérez Whitman MD on November 22, 2017 at 10:28 Board Certified Radiologist. This report was verified electronically.
[2017-11-22 12:00] VITALS: BP 133/79; PULSE 93; RESP 18; TEMP 97.3; O2SAT 96
[2017-11-22] MEDS: guaiFENesin/DEXTROMETHORPHAN 200 MG/20 MG/10 ML CUP PO PRN (13:10)
--- NOTE | 2017-11-22 13:38 | PD.CARD.PN ---
Subjective Subjective Remarks No events overnight, up to the wheelchair Feels well, no chest pain/SOB Telemetry with heart rates from 90-115 Objective Medications Current Medications Medications (Trade) Dose Ordered Sig/Meena Route Start Time Stop Time Status Last Admin (NS Flush) 2 ml UNSCH PRN IV FLUSH 11/17/17 20:00 (NS Flush) 2 ml BID IV FLUSH 11/17/17 21:00 11/22/17 10:31 (Zofran Inj) 4 mg Q6H PRN IVP 11/17/17 20:00 (Tylenol) 650 mg Q6H PRN PO 11/17/17 20:00 ([place] 5-325 Mg) 1 tab Q4H PRN PO 11/17/17 20:00 11/20/17 10:52 (Elena-Colace) 1 tab BID PO 11/17/17 21:00 11/22/17 10:29 (Milk Of Magnesia Liq) 30 ml Q12H PRN PO 11/17/17 20:00 (Senokot) 17.2 mg Q12H PRN PO 11/17/17 20:00 (Dulcolax Supp) 10 mg DAILY PRN RECTAL 11/17/17 20:00 (Lactulose Liq) 30 ml DAILY PRN PO 11/17/17 20:00 11/21/17 10:16 (SEROquel) 600 mg HS PO 11/17/17 22:00 11/21/17 20:25 (Lipitor) 20 mg HS PO 11/17/17 22:00 11/21/17 20:23 (Pill Splitter) 1 ea UNSCH PRN OTHER 11/18/17 15:30 (Benadryl) 25 mg Q6H PRN PO 11/19/17 19:30 (Morphine Inj) 2 mg Q4H PRN IV PUSH 11/20/17 14:30 11/20/17 22:14 ([place] 10-325 Mg) 1 tab Q4H PRN PO 11/20/17 14:30 11/22/17 10:30 (Duoneb Neb) 1 ampule Q2HR NEB PRN NEB 11/20/17 14:30 Azithromycin 500 mg/Sodium Chloride 250 ml @ 250 mls/hr Q24H IV 11/20/17 15:00 11/21/17 16:15 Ceftriaxone Sodium 1000 mg/ Sodium Chloride 100 ml @ 200 mls/hr Q24H IV 11/20/17 19:00 11/21/17 19:00 (Lovenox Inj) 40 mg Q24H SQ 11/20/17 15:00 11/21/17 16:15 (Robitussin Dm 200-20 Mg/10 ml Liq) 10 ml Q4H PRN PO 11/20/17 21:30 11/22/17 13:10 (Lopressor) 75 mg Q12HR PO 11/21/17 21:00 11/22/17 10:30 (Pill Splitter) 1 ea UNSCH PRN OTHER 11/21/17 15:15 Vital Signs / I&O Vital Signs Date Time Temp Pulse Resp B/P (MAP) Pulse Ox O2 Delivery O2 Flow Rate FiO2 11/22/17 08:00 96.5 113 18 142/74 (96) 95 11/22/17 07:52 111 11/22/17 04:00 100 11/22/17 03:42 97.0 100 18 139/83 (101) 94 11/21/17 23:33 104 11/21/17 23:04 96.7 102 18 148/80 (102) 92 11/21/17 20:35 94 Nasal Cannula 3.00 11/21/17 20:00 100 11/21/17 20:00 92 Nasal Cannula 3.00 11/21/17 19:05 96.7 121 18 140/97 (111) 92 11/21/17 16:17 18 11/21/17 16:00 98.0 125 18 131/74 (93) 93 I/O 11/21/17 11/21/17 11/21/17 11/22/17 11/22/17 11/22/17 07:00 15:00 23:00 07:00 15:00 23:00 Intake Total 480 ml 650 ml 580 ml 360 ml Output Total 1200 ml 500 ml 850 ml 350 ml Balance -720 ml 150 ml -270 ml 10 ml Intake Oral 480 ml 650 ml 480 ml 360 ml IV Total 100 ml Output Urine Total 1200 ml 500 ml 850 ml 350 ml # Bowel Movements 0 2 3 2 Physical Exam GENERAL: NAD, AAOx3 SKIN: Warm and dry. HEAD: Atraumatic. Normocephalic. EYES: Pupils equal and round. No scleral icterus. No injection or drainage. ENT: No nasal bleeding or discharge. Mucous membranes pink and moist. NECK: Trachea midline. No JVD. CARDIOVASCULAR: Regular rhythm, tachycardic RESPIRATORY: No accessory muscle use. Clear to auscultation. Breath sounds equal bilaterally. GASTROINTESTINAL: Abdomen soft, non-tender, nondistended. Hepatic and splenic margins not palpable. MUSCULOSKELETAL: Extremities without clubbing, cyanosis, or edema. Right hip pain with motion NEUROLOGICAL: Awake and alert. No obvious cranial nerve deficits. Motor grossly within normal limits. Five out of 5 muscle strength in the arms and legs. Normal speech. PSYCHIATRIC: Appropriate mood and affect; insight and judgment normal. Laboratory Laboratory Tests Test 11/22/17 04:25 White Blood Count 8.1 TH/MM3 Red Blood Count 2.98 MIL/MM3 Hemoglobin 9.7 GM/DL Hematocrit 28.5 % Mean Corpuscular Volume 95.8 FL Mean Corpuscular Hemoglobin 32.4 PG Mean Corpuscular Hemoglobin Concent 33.8 % Red Cell Distribution Width 15.1 % Platelet Count 260 TH/MM3 Mean Platelet Volume 7.6 FL Blood Urea Nitrogen 11 MG/DL Creatinine 0.95 MG/DL Random Glucose 94 MG/DL Calcium Level 7.5 MG/DL Magnesium Level 1.2 MG/DL Sodium Level 134 MEQ/L Potassium Level 3.6 MEQ/L Chloride Level 104 MEQ/L Carbon Dioxide Level 21.4 MEQ/L Anion Gap 9 MEQ/L Estimat Glomerular Filtration Rate 59 ML/MIN Imaging Last 24 hours Impressions Chest X-Ray 11/22/17 0000 Signed Impressions: Service Date/Time: November 09:34 - CONCLUSION: 1. Left lower lobe atelectasis versus pneumonia. 2. Clearing right basilar atelectasis Pérez Whitman MD Assessment and Plan Problem List: (1) Sinus tachycardia ICD Codes: R00.0 - Tachycardia, unspecified (2) Fracture of right femur ICD Codes: S72.91XA - Unspecified fracture of right femur, initial encounter for closed fracture Status: Acute (3) Right hip pain ICD Codes: M25.551 - Pain in right hip Status: Acute (4) Renal insufficiency ICD Codes: N28.9 - Disorder of kidney and ureter, unspecified (5) Hypotension ICD Codes: I95.9 - Hypotension, unspecified (6) Fall ICD Codes: W19.XXXA - Unspecified fall, initial encounter Assessment and Plan 1) Mechanical fall with right hip fracture POD #3 for Right hip surgery 2) Sinus tachycardia Most likely due to underlying illness, fever, pain and stopping BB UTI/PNA Variable, so less likely other SVT 3) Increase BB to home dose of 100mg BID 4) EF 65-70% 5) Stress test 4 months ago which was negative per the patient 6) Will see PRN, call with questions Problem Qualifiers (1) Fracture of right femur: Qualified Codes: S72.141A - Displaced intertrochanteric fracture of right femur , initial encounter for closed fracture Mark Becerra DO Nov 22, 2017 13:38
[2017-11-22] MEDS ORDERED: LORA0.5T PO (14:55)
[2017-11-22] MEDS ORDERED: DEXT10SY2 PO (14:55)
[2017-11-22] MEDS ORDERED: CEFU1TAB20 PO (14:55)
[2017-11-22] MEDS ORDERED: LISI10TA3 PO (14:55)
[2017-11-22] MEDS ORDERED: AZIT500T2 PO (14:55)
--- NOTE | 2017-11-22 14:56 | HHI.DCPOC ---
Discharge Care Plan Diagnosis: (1) Pneumonia (2) UTI (urinary tract infection) (3) Sinus tachycardia (4) Renal insufficiency (5) Leukocytosis (6) Fracture of right femur Goals to Promote Your Health * To prevent worsening of your condition and complications * To maintain your health at the optimal level Directions to Meet Your Goals Take your medications as prescribed Follow your dietary instruction Follow activity as directed Keep your appointments as scheduled Take your immunizations and boosters as scheduled If your symptoms worsen call your PCP, if no PCP go to Urgent Care Center or Emergency Room Smoking is Dangerous to Your Health. Avoid second hand smoke Call the 24-hour hour crisis hotline for domestic abuse at Thony Pope DO Nov 22, 2017 14:56
[2017-11-22] MEDS ORDERED: MAGNESIUM SULFATE 1 GM PREMIX 100 ML IV SCH (15:00)
[2017-11-22] MEDS ORDERED: ACETAMINOPHEN/HYDROcodone 325 MG/5 MG TAB PO ONE (15:00)
--- NOTE | 2017-11-22 15:08 | HHI.DS ---
Discharge Summary Admission Date Nov 17, 2017 at 19:54 Discharge Date: Nov 22, 2017 Admitting Diagnosis fracture right femur (1) Fall ICD Code: W19.XXXA - Unspecified fall, initial encounter Diagnosis: Principal Status: Acute (2) Fracture of right femur ICD Code: S72.91XA - Unspecified fracture of right femur, initial encounter for closed fracture Diagnosis: Principal Status: Acute (3) Hypotension ICD Code: I95.9 - Hypotension, unspecified Status: Acute (4) Bradycardia ICD Code: R00.1 - Bradycardia, unspecified Status: Acute (5) Renal insufficiency ICD Code: N28.9 - Disorder of kidney and ureter, unspecified Diagnosis: Principal Status: Acute (6) Leukocytosis ICD Code: D72.829 - Elevated white blood cell count, unspecified Status: Acute (7) Pneumonia ICD Code: J18.9 - Pneumonia, unspecified organism Diagnosis: Principal Status: Acute (8) UTI (urinary tract infection) ICD Code: N39.0 - Urinary tract infection, site not specified Diagnosis: Principal Status: Acute (9) Sinus tachycardia ICD Code: R00.0 - Tachycardia, unspecified Diagnosis: Principal Status: Acute Procedures Right femur fracture repair 11/19/17 Brief History - From Admission This is a 67-year-old female w/ a PMH of HTN, Hyperlipidemia and CAD who was brought to the ER for right hip pain following a fall. Pt states she was in the kitchen and had acute onset of dizziness, dropped a container on the floor and when she went to pick it up had slip and fall onto right hip. Pain is sharp , constant, severe 10/10. Worse w/ movement. No LOC or head trauma reported. Upon EMS arrival, pt noted to have BP 80's systolic, s/p IVF w/ improvement. On arrival to ER, BP 129/75, HR 55, O2 sat 96% on RA, Afebrile. WBC 13.9. Creatinine 2.20, no previous labs for comparison. CXR with no acute findings. Hip X-ray with intertrochanteric hip fracture. Dr. Dale consulted by ER physician, plan is for surgical intervention. CBC/BMP: 1/4/18 0425 11/22/17 0425 Significant Findings Laboratory Tests Test 11/20/17 06:06 11/20/17 15:51 11/21/17 11:36 11/22/17 04:25 Red Blood Count 2.06 MIL/MM3 (4.00-5.30) 2.76 MIL/MM3 (4.00-5.30) 3.09 MIL/MM3 (4.00-5.30) 2.98 MIL/MM3 (4.00-5.30) Hemoglobin 7.1 GM/DL (11.6-15.3) 9.1 GM/DL (11.6-15.3) 10.2 GM/DL (11.6-15.3) 9.7 GM/DL (11.6-15.3) Hematocrit 20.5 % (35.0-46.0) 26.8 % (35.0-46.0) 29.9 % (35.0-46.0) 28.5 % (35.0-46.0) Mean Corpuscular Hemoglobin 34.2 PG (27.0-34.0) Random Glucose 141 MG/DL (74-106) Total Protein 4.8 GM/DL (6.4-8.2) Calcium Level 7.2 MG/DL (8.5-10.1) 7.7 MG/DL (8.5-10.1) 7.5 MG/DL (8.5-10.1) Magnesium Level 0.8 MG/DL (1.5-2.5) 1.2 MG/DL (1.5-2.5) Sodium Level 135 MEQ/L (136-145) 134 MEQ/L (136-145) Estimat Glomerular Filtration Rate 58 ML/MIN (>89) 48 ML/MIN (>89) 59 ML/MIN (>89) Iron Level 8 MCG/DL (50-170) Total Iron Binding Capacity 140 MCG/DL (250-450) Percent Iron Saturation 5.7 % (20-50) Ferritin 379 NG/ML (8-252) Folate 19.5 NG/ML (3.1-17.5) Thyroid Stimulating Hormone 3rd Gen 0.259 uIU/ML (0.358-3.740) Creatinine 1.14 MG/DL (0.50-1.00) Total Triiodothyronine 33 NG/DL (60-181) Imaging Last Impressions Chest X-Ray 11/22/17 0000 Signed Impressions: Service Date/Time: November 09:34 - CONCLUSION: 1. Left lower lobe atelectasis versus pneumonia. 2. Clearing right basilar atelectasis Pérez Whitman MD Femur X-Ray 11/19/17 0000 Signed Impressions: Service Date/Time: Sunday, November 19, 2017 19:04 - CONCLUSION: Intact postsurgical changes. Linden Araujo MD Hip and Pelvis X-Ray 11/17/17 1850 Signed Impressions: Service Date/Time: Friday, November 17, 2017 19:12 - CONCLUSION: Intertrochanteric fracture. Linden Araujo MD PE at Discharge General: No acute distress. HEENT: NC, AT. Heart: Tachycardic. No murmur. Lungs: Decreased breath sounds at the bases. Abdomen: Soft, nontender, nondistended. Extremities: No lower extremity edema. Tenderness to palpation over right hip. Bandage in place. Neuro: Alert and oriented. Psych: Mood and affect appropriate. Pt update on day of discharge The patient still complained of pain and requested an additional pain medication. She seemed interested to go to rehabilitation. She had questions regarding her fracture location. Discussed with nursing. Hospital Course Right hip fracture Status post mechanical fall at home. Patient had dizziness preceding the event. Orthopedic surgery was consulted. Status post surgical repair on 11/19/2017. She received wound care, weightbearing and anticoagulation per orthopedic surgery. She received pain control with a bowel regimen. She worked with physical therapy. She was accepted to inpatient rehabilitation. She'll follow up with orthopedic surgery as an outpatient. Tachycardia Cardiology was consulted. She initially had hypotension which improved. She recently had a stress test which was negative. Echo with normal EF. TSH low but T3 low and free T4 normal. Her Lopressor was increased back to 100 mg by mouth twice a day with improvement. We treated her underlying infections with antibiotics. She received IV fluids. She received pain control. We discontinued hydralazine and amlodipine. She will follow up with cardiology as an outpatient. Fever/ community-acquired pneumonia/ UTI Temp of 101 on 11/19. Urine culture indicative of infection with klebsiella pneumoniae. Repeat chest x-ray with right lower lobe infiltrate. We started IV ceftriaxone and azithromycin. Blood cultures with no growth to date. She received incentive spirometry. She received oxygen and nebs as needed. She will complete a course of by mouth azithromycin and cefuroxime. She will continue cough medications as needed. Renal insufficiency Creatinine 2.2 upon arrival, improved w/ fluids. Will resume lisinopril at 10 mild grams daily upon discharge. She will have a BMP checked as an outpatient. Anemia Transfused 1 unit of RBCs with improvement. She will need to have a CBC repeated as an outpatient. Pt Condition on Discharge: Stable Discharge Disposition: Rehab Inpatient Discharge Time: > 30 minutes Discharge Instructions DIET: Follow Instructions for: As Tolerated, No Restrictions Activities you can perform: See Additionl Instruction Follow up Referrals: Cardiology - 2 Weeks Orthopedics - 1 Week with Yessenia Solorio MD PCP Follow-up - 1 Week New Medications: Azithromycin (Azithromycin) 500 Mg Tab 500 MG PO DAILY for Infection, #2 TAB 0 Refills Cefuroxime (Cefuroxime) 500 Mg Tab 500 MG PO BID for Infection for 5 Days, #10 TAB 0 Refills Lisinopril (Lisinopril) 10 Mg Tab 10 MG PO DAILY, #30 TAB 0 Refills Rivaroxaban (Xarelto) 10 Mg Tab 10 MG PO DAILY for Blood Clot Prevention for 14 Days, #14 TAB 0 Refills Dextromethorphan-Guaifenesin (Dextromethorphan/Guaifene 10-100 mg/5Ml) 100 Mg- 10 Mg/5 Ml Syp 10 ML PO Q4H PRN for COUGH, #1 BOTTLE Hydrocodone/Acetaminophen (Hydrocodone-Acetamin 5-325 mg) 5 Mg-325 Mg Tablet 1 TAB PO Q4H PRN for pain, #60 TAB Continued Medications: Atorvastatin (Atorvastatin) 20 Mg Tab 20 MG PO HS for Cholesterol Management, #30 TAB 0 Refills Folic Acid (Folic Acid) 0.4 Mg Tab 1000 MCG PO DAILY for Nutritional Supplement, TAB 0 Refills Lorazepam (Lorazepam) 0.5 Mg Tab 0.25 MG PO DAILY PRN for ANXIETY, #12 TAB 0 Refills (This prescription has been renewed) Metoprolol Tartrate (Metoprolol Tartrate) 25 Mg Tab 100 MG PO BID, #60 TAB 0 Refills Quetiapine (Seroquel) 300 Mg Tab 600 MG PO HS, #30 TAB 0 Refills Thiamine HCl (B-1) 100 Mg Tablet 100 MG PO DAILY Discontinued Medications: Amlodipine (Amlodipine) 5 Mg Tab 5 MG PO DAILY for Blood Pressure Management, #30 TAB 0 Refills Codeine Phosphate/Guaifenesin (Guaifen-Codeine 100-10 mg/5 ml) 10 Mg-100 Mg/5 Ml Liquid 10 MG PO Q6HR PRN for NASAL CONGESTION AND/OR COUGH Hydralazine (Hydralazine) 100 Mg Tab 25 MG PO TID for Blood Pressure Management, TAB 0 Refills Take with meals Lisinopril (Lisinopril) 20 Mg Tab 20 MG PO BID, #30 TAB 0 Refills Thony Pope DO Nov 22, 2017 15:08
[2017-11-22] MEDS: ENOXAPARIN SODIUM 40 MG/0.4 ML SYRINGE SQ SCH (15:48)
[2017-11-22 16:00] VITALS: BP 150/98; PULSE 106
[2017-11-22] MEDS: ACETAMINOPHEN/HYDROcodone 325 MG/5 MG TAB PO PRN (16:59)
[2017-11-22] MEDS ORDERED: METOPROLOL TARTRATE 100 MG TAB PO SCH (21:00)
== END 2017-11-22 17:34 | DRG 480 ==
LOC: NEPC 18:15 → NEDA 19:54 → N06A 20:41
PROVIDERS: ADMIT Hospitalist; ATTEND Hospitalist
PROC: 0QS636Z Reposition Right Upper Femur with Intramedullary Internal Fixation Device, Percutaneous Approach (ICD-10-PCS; principal; 2017-11-19 17:42)
PROC: 30233N1 Transfusion of Nonautologous Red Blood Cells into Peripheral Vein, Percutaneous Approach (ICD-10-PCS; 2017-11-20)
DX: S72.141A Displaced intertrochanteric fracture of right femur, initial encounter for closed fracture (principal); J18.9 Pneumonia, unspecified organism; N17.9 Acute kidney failure, unspecified; I95.9 Hypotension, unspecified; E83.42 Hypomagnesemia; E86.0 Dehydration; N39.0 Urinary tract infection, site not specified; R00.0 Tachycardia, unspecified; I25.2 Old myocardial infarction; I10 Essential (primary) hypertension; W01.0XXA Fall on same level from slipping, tripping and stumbling without subsequent striking against object, initial encounter; Y93.E9 Activity, other interior property and clothing maintenance; Y92.000 Kitchen of unspecified non-institutional (private) residence as the place of occurrence of the external cause; E78.5 Hyperlipidemia, unspecified; I25.10 Atherosclerotic heart disease of native coronary artery without angina pectoris; Z87.891 Personal history of nicotine dependence; Z79.82 Long term (current) use of aspirin; R11.0 Nausea; R00.1 Bradycardia, unspecified; D64.9 Anemia, unspecified
CPT/HCPCS: 36430; 71010; 71045; 73502; 73552; 76000; 80048; 80053; 81001; 82607; 82728; 82746; 83540; 83550; 83735; 84155; 84439; 84443; 84480; 85007; 85025; 85027; 85610; 85730; 86850; 86900; 86901; 86920; 87040; 87077; 87086; 87186; 93005; 93306; 94150; 99211; 99285; C1713; G0463; J0131; J0456; J0690; J0696; J1580; J1650; J1956; J2250; J2270; J2370; J2405; J2710; J3010; J3475; J7030; J7040; J7050; J7120; P9016